=== PATIENT | female | born 1945 | race Caucasian/White ===

== ENCOUNTER 2019-01-22 01:35 | Outpatient (CLI) | payer MEDICARE, BC, SELFPAY ==
[2019-01-22 12:58] LABS: CREATININE 0.82 mg/dL (0.55-1.02)
[2019-01-22] MEDS: Omnipaque 350 MG/ML 100 ML BTL IJ (13:28)
[2019-01-22] MEDS: Normal Saline Flush 10 ML SYR IVP (13:29)
--- NOTE | 2019-01-22 13:30 | DI.CT_ITS ---
EXAM: CT CHEST W CLINICAL HISTORY: MASS OF CHEST WALL, R22.2, H/O HODGKINS LYMPHOMA. TECHNIQUE: Post IV contrast. COMPARISON: CHEST 2 VIEWS PA,LAT from 01/11/2010 FINDINGS: The heart size is normal. No pleural or pericardial effusions are seen. No axillary, hilar or medias tinal adenopathy is seen. The thyroid gland is unremarkable. Scoliosis and degenerative changes are seen in thoracic spine. The aorta shows calcification but is normal in diameter. There is some pul monary scarring adjacent to the spine in the anterior mediastinum which could be secondary to previou s radiation therapy. No pulmonary nodules or acute infiltrates are seen. No chest wall mass is iden tified. The breasts are unremarkable. The visualized portions of the upper abdomen are unremarkab le. IMPRESSION: No evidence of a chest wall mass or other acute abnormality.
== END 2019-01-22 01:55 ==
PROVIDERS: PCP Physician Assistant Medical; Visit Provider Physician Assistant Medical
DX: R22.2 Localized swelling, mass and lump, trunk (principal); Z85.71 Personal history of Hodgkin lymphoma
CPT/HCPCS: 71260; 82565; J3490

== ENCOUNTER → 2019-03-01 09:24 | Outpatient (BNVA) | payer MEDICARE, BC, SELFPAY | PROVIDERS: PCP Physician Assistant Medical; Referring Provider Physician Assistant Medical; Visit Provider Student in an Organized Health Care Education/Training Program | DX: M17.12 Unilateral primary osteoarthritis, left knee (principal); M17.11 Unilateral primary osteoarthritis, right knee; M23.203 Derangement of unspecified medial meniscus due to old tear or injury, right knee | CPT/HCPCS: 99213 ==

== ENCOUNTER 2019-04-24 01:53 | Outpatient (CLI) | payer MEDICARE, BC, SELFPAY ==
--- NOTE | 2019-04-24 14:11 | DI.US_ITS ---
APPROVED REPORT EXAM: Comprehensive 2D, Doppler, and color-flow Echocardiogram Patient Location: Out-Patient Finisher Merchant Products: Susana Joe RDCS (AE) Rhythm: NSR Indications: pre operative examiniation z01.818 Conclusion Left Ventricle : The left ventricle is normal size. Borderline concentric left ventricular hypertroph y. Left ventricular systolic function is normal. There is normal LV segmental wall motion. The left ventricular diastolic function is normal. LVEF is estimated to be 60-65%. Right Ventricle : The right ventricle is normal size. The right ventricular systolic function is norm al. Atria : Left atrium is normal in size. Right atrium is mildly dilated. Aortic Valve : Aortic valve is trileaflet. Aortic valve has calcified nodular thickening. Moderate ao rtic valve sclerosis. Mild to moderate aortic regurgitation. Moderate to severe aortic stenosis (mean gradient 31 mmHg, JOAN by VTI 1.02 cm???). 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 Mild to moderate mitral re gurgitation. No evidence of mitral valve stenosis. Tricuspid Valve : The tricuspid valve leaflets are thickened , but open well. Mild to moderate tricus pid regurgitation. Great Vessels : IVC is normal in size and collapses >50% with inspiration. Estimated RVSP is 30-35 m mHg. Compared to prior echocardiogram dated 11/18/2015: Patient's aortic valve stenosis has worsened and parveen n gradient has increased from 10 mmHg to 30 mmHg. Wall motion Left Ventricle The left ventricle is normal size. Left ventricular systolic function is normal. Borderline concentri c left ventricular hypertrophy. There is normal LV segmental wall motion. The left ventricular diasto lic function is normal. LVEF is estimated to be 60-65%. Right Ventricle The right ventricle is normal size. The right ventricular systolic function is normal. Atria Left atrium is normal in size. Right atrium is mildly dilated. Aortic Valve Aortic valve is trileaflet. Aortic valve has calcified nodular thickening. Moderate aortic valve scle rosis. Moderate to severe aortic stenosis (mean gradient 31 mmHg, JOAN by VTI 1.02 cm???). Mild to mod erate aortic regurgitation. 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 No evidence of mitral valve stenosis. Mil d to moderate mitral regurgitation. Tricuspid Valve The tricuspid valve leaflets are thickened , but open well. Mild to moderate tricuspid regurgitation. Pulmonic Valve Pulmonic valve is not well visualized. Great Vessels The aortic root is normal in size. The ascending aorta is normal in size. IVC is normal in size and c ollapses >50% with inspiration. Estimated RVSP is 30-35 mmHg. Pericardium No pericardial effusion. 2D Dimensions IVSd 1.05 cm F: 0.6-1.0 LV EDV A2C 66.20 mL PWd 1.15 cm F: 0.6 - 1.0 LV EDV A4C 46.70 mL LVDd 4.10 cm F: 3.8 - 5.2 LA Volume Index A2C 33.42 mL/m2 LVDs 2.85 cm F: 2.2 - 3.5 LA Volume Index A4C 33.68 mL/m2 Aortic Root 2.90 cm F: 2.7 - 3.3 LA Volume Index Biplane 34.81 mL/m2 RA Area A4C 20.01 cm2 LA Area A4C 19.50 cm2 LVOT 1.95 cm (M/F) 1.5-2.5 LA Area A2C 20.15 cm2 Ascending Aorta 3.09 cm F: 2.3 - 3.1 EF AP4 61.67 % LVEF (Teich) 58.54 % EF AP2 64.65 % LVEF (Briseno's) 60.63 % F: 54 - 74 EF BP 60.63 % LV Volume 44.99 mL F: 46 - 106 LV Volume Index 23.67 mL/m2 F: 29 - 61 FS 30.55 % LV Diastology E/A Ratio 1.4 MED E' 0.09 (>0.07 m/s) LV E/e MED 12.40 (<14) LAT E' 0.10 (>0.1 m/s) LV E/e LAT 11.50 (<14) Aortic Valve LVOT Area 3.06 cm2 LVOT Vmax 1.17 m/s LVOT Mean Aron. 0.92 m/s LVOT Peak Gr. 5.5 mmHg LVOT Mean Gr. 3.7 mmHg AoV Area/ BSA (Vmax) 0.51 cm2/m2 LVOT VTI 0.267 m AoV Vmax 3.73 (0.5-1.3 m/s) JOAN Mean Aron. Index 0.56 cm2/m2 AoV Mean Aron. 2.65 m/s AoV Peak Grad 55.6 mmHg AI PHT 334.67 msec AoV Mean Grad 31.3 (<5 mmHg) AoV VTI 0.846 (0.18-0.25 m) AV Regurg Decel. 1154.05 msec AoV Area VTI 1.02 (2.5-4.5 cm2) AoV Area/ BSA (VTI) 0.53 cm/m2 Mitral Valve MV E Max Aron. 1.11 (0.4-1.3 m/s) MV A Velocity 0.80 (0.4-1.3 m/s) E/A Ratio 1.30 Pulmonary Valve PV Peak Velocity 0.89 (0.5-1.5 m/s) RVOT Peak Gr. 1.71 mmHg RVOT Peak Aron. 0.65 m/s RVOT Mean Gr. 0.95 mmHg RVOT VTI 0.10 m Tricuspid Valve TR P. Velocity 2.74 m/s TV Regurg Vmax 2.74 m/s RAP Estimate 3.00 mmHg RVSP 32.95 mmHg TR P. Gradient 29.95 mmHg
== END 2019-04-24 02:13 ==
PROVIDERS: PCP Physician Assistant Medical; Visit Provider Physician Assistant Medical
DX: R01.1 Cardiac murmur, unspecified (principal); I35.2 Nonrheumatic aortic (valve) stenosis with insufficiency; I34.0 Nonrheumatic mitral (valve) insufficiency; Z85.71 Personal history of Hodgkin lymphoma; Z01.810 Encounter for preprocedural cardiovascular examination
CPT/HCPCS: 93306

== ENCOUNTER 2020-04-29 03:12 | Outpatient (CLI) | payer MEDICARE, BC, SELFPAY ==
--- NOTE | 2020-04-29 14:00 | DI.US_ITS ---
APPROVED REPORT EXAM: Comprehensive 2D, Doppler, and color-flow Echocardiogram Patient Location: Out-Patient City Constable: Gisella Reeves RDCS (AE) Indications: Aortic Stenosis Other Information Study Quality: Adequate Conclusion Normal left ventricular wall thickness and chamber size. Estimated ejection fraction is 60%. There are no segmental wall motion abnormalities Normal right ventricular size and systolic function Both atria are normal in size Aortic valve is sclerotic with mild to moderate stenosis. Mean gradient is 18 mmHg. Calculated aort ic valve area is 1.1 cm???. Mild aortic regurgitation Mild to moderate mitral regurgitation. Mild mitral annular calcification Mild tricuspid regurgitation with normal estimated right ventricular systolic pressure Wall motion Left Ventricle The left ventricle is normal size. The left ventricular systolic function is normal. The left ventric ular ejection fraction is within the normal range. There is normal left ventricular wall thickness. T here is normal LV segmental wall motion. There is no ventricular septal defect visualized. Left ventr icular thrombus is present. Left ventricular thrombus appears mobile. Left ventricular thrombus is pr esent. LVEF is 60%. Right Ventricle The right ventricle is normal size. The right ventricular systolic function is normal. The RVSP is 27 .9 mmHg. Atria The left atrium size is normal. The right atrium size is normal. The interatrial septum is intact wit h no evidence for an atrial septal defect. Aortic Valve Aortic valve is calcified. Aortic valve is trileaflet. Mild to moderate aortic stenosis. Peak aortic valve gradient is 32.8mmHg. Highest mean aortic valve gradient is 18.6mmHg. Calculated JOAN by the con tinuity equation is 1.1cm2. Mild aortic regurgitation. Mitral Valve Mild mitral annular calcification. No evidence of mitral valve stenosis. Mild to moderate mitral regu rgitation. Tricuspid Valve The tricuspid valve is normal in structure. There is no tricuspid valve stenosis. Mild tricuspid regu rgitation. Pulmonic Valve The pulmonary valve is normal in structure. There is no pulmonic valvular stenosis. There is no pulmo albert valvular regurgitation. Great Vessels The aortic root is normal in size. The ascending aorta is normal in size. Aortic arch is not well vis ualized. IVC is normal in size and collapses >50% with inspiration. Pericardium There is no pericardial effusion. 2D Dimensions IVSD d PLAX 1.00 cm F: 0.6-1.0 LV Vol A2C d MOD 90.9 mL LVPW d PLAX 1.02 cm F: 0.6 - 1.0 LV Vol A4C d MOD 88.9 mL LVID d PLAX 4.26 cm F: 3.8 - 5.2 LA vol/ BSA A2C s A-L 29.4 mL/m2 LVDs 3.00 cm F: 2.2 - 3.5 LA vol/ BSA A4C s A-L 26.8 mL/m2 Ao Root d 2.81 cm F: 2.7 - 3.3 LA Vol/ BSA Biplane s A-L 28.4 mL/m2 RA Area A4C 13.86 cm2 LA Area A4C s MOD 18.07 cm2 RA Vol/ BSA A4C s A-L 17.5 mL/m2 LA Area A2C s MOD 19.12 cm2 Ao Asc Diam d 3.16 cm F: 2.3 - 3.1 LV EF A4C MOD 64.3 % LV EF Teichholz 56.4 % LV EF A2C MOD 59.9 % LVEF (Briseno's) 61.38 % F: 54 - 74 LV EF Biplane MOD 61.4 % LV Volume 69.78 mL F: 46 - 106 SV 56.04 mL LV Volume Index 36.92 mL/m2 F: 29 - 61 SV Index 29.62 mL/m2 LV Vol Biplane MOD 91.3 mL FS 29.20 % M-Mode TAPSE 2.40 cm (M/F) >1.7 LV Diastology MV E' medial 0.084 (>0.07 m/s) E/A Ratio 1.2 LV E/e MED 13.15 (<14) MV E Vmax 1.11 (0.4-1.3 m/s) MV E' lateral 0.086 (>0.1 m/s) MV A Vmax 0.90 (0.4-1.3 m/s) LV E/e LAT 12.95 (<14) MV E/A Ratio 1.20 MV E/E' medial 13.17 MV E/E' lateral 12.98 Aortic Valve LVOT Area 3.03 cm2 AoV Area Vmax 1.10 cm2 LVOT Vmax 1.04 m/s AoV Area/ BSA (Vmax) 0.58 cm2/m2 LVOT Mean Aron. 0.68 m/s JOAN Mean Aron. 1.01 cm2 LVOT Peak Grad 4.3 mmHg JOAN Mean Aron. Index 0.53 cm2/m2 LVOT Mean Grad 2.2 mmHg AR DT 1420 msec LVOT VTI 0.211 m AR PHT 412 msec LVOT Diam s 1.95 cm AoV Vmax 2.86 m/s Velocity Ratio 0.36 AoV Mean Aron. 2.05 m/s AoV Peak Grad 32.8 mmHg LVOT SV 64.00 mL AoV Mean Grad 18.6 mmHg AoV VTI 0.628 m AoV Area VTI 1.02 cm2 AoV Area/ BSA (VTI) 0.54 cm/m2 Mitral Valve MV DT 198 (160-240 msec) MR Vmax 5.44 m/s MV PHT 57 msec MR VTI 1.808 m MV Area PHT 3.84 cm2 MR Peak Grad 118.3 mmHg MV VTI 0.348 m MR Mean Grad 92.3 mmHg MV VTI Annulus 0.357 m MR PISA Radius 0.54 cm MV Area VTI 1.89 (4.0-6.0 cm2) MR EROA 0.12 cm2 MR Aliasing Velocity 0.35 m/s MR PISA 1.84 cm2 Pulmonary Valve PV Vmax 1.39 (0.5-1.5 m/s) RVOT Peak Gr. 1.95 mmHg PV Peak Grad 7.7 mmHg RVOT Mean Gr. 1.10 mmHg PV Mean Grad 3.9 mmHg RVOT VTI 0.187 m PV VTI 0.272 m RVOT Vmax 0.70 m/s Tricuspid Valve TR Peak Grad 24.8 mmHg TR Vmax 2.49 m/s RA Pressure 3.00 mmHg RVSP (TR) 27.9 mmHg
== END 2020-04-29 03:32 ==
PROVIDERS: PCP Physician Assistant Medical; Visit Provider Physician Assistant Medical
DX: I08.3 Combined rheumatic disorders of mitral, aortic and tricuspid valves
CPT/HCPCS: 93306

== ENCOUNTER 2020-09-03 05:17 | Emergency (ER) | payer MEDICARE, BC, SELFPAY ==
[2020-09-03] VITALS (30 sets, daily range): BP systolic 112–131; BP diastolic 56–73; PULSE 76–89; RESP 13–26; TEMP 36.5–36.6; O2SAT 78–100
--- NOTE | 2020-09-03 05:30 | RT.EKG_ITS ---
APPROVED REPORT Exam: Resting ECG Reason for Exam: SOB Patient Location: E HR:77 bpm ECG Measurements Heart Rate 77 AXIS WA 163 P 59 QRSd 83 QRS 26 QT 387 T 32 QTc 439 Conclusion Sinus rhythm. Atrial premature complexes. ST elevation suggests possible acute pericarditis...ST >0.10mV, ant/lat/inf
--- NOTE | 2020-09-03 05:43 | ED.GENADUL_ITS ---
Discharge Plan Disposition Patient Disposition: HOME Condition: Stable Discharge Details Clinical Impression: Shortness of breath, Pericarditis Primary Care Provider: Norris Blair ED Provider: Raymond Anthony Home Meds and New Rx's Prescriptions: New colchicine 0.6 mg tablet 0.6 mg PO BID Qty: 60 RF: 0 omeprazole 20 mg capsule,delayed release(DR/EC) 20 mg PO DAILY Qty: 30 RF: 0 Continued ibuprofen 200 MG capsule 200 - 400 mg PO PRN PRNRF: 0 loratadine 10 MG tablet 10 mg PO DAILY RF: 0 Discharge Instructions Instructions: Acute Pericarditis (ED) Additional Instructions: In addition to the colchicine and omeprazole take 600mg ibuprofen very 6 hours until symptoms resolve follow up with your primary care provider as you may need longer treatment with colchicine if you feel more ill, have worsening symptoms or shortness of breath return to the emergency department Medical Decision Making <Manoj Morel MD - Last Filed: 09/03/20 06:52> 75-year-old female complains of difficulty breathing that began yesterday afternoon after exerting herself vigorously doing yard work. She also complains of achy back pain. States she feels as if she cannot take a deep breath and has some discomfort with doing so. Discomfort worse while lying down. She is known to have a calcified aortic valve by ultrasound from April 2020. She has also had a history of lymphoma. She arrives to the ER with normal vital signs, speaking in full sentences, with the after mentioned complaints as well as complaints of loose stool and a mild sore throat. She has had notes of COVID-19 vaccine. Differential diagnosis is broad. Her exam does reveal a loud systolic murmur consistent with her known aortic stenosis. IV access established, screening laboratories, EKG, chest x-ray obtained. EKG does reveal J-point elevation and may be consistent with pericarditis. Of note patient's CK is slightly elevated at 229, troponin is negative, C-reactive protein still elevated at 0.6. BNP 205. D-dimer 680. Chest x-ray: Hyperinflation with patchy opacity at the right lung base. Well age-adjusted D-dimer is negative, I will proceed with CT imaging. Case to be signed out to Dr. Anthony pending further diagnostics. Please see his subsequent note. <Raymond Anthony MD - Last Filed: 09/03/20 09:35> patient states she feels significantly better after toradol and initial troponin unremarkable and cta shows no acute findings, chronic unchanged infiltrate in right lung and she denies any infectious symptoms. On bedside u/s has normal appearing EF and also potentially small effusion. her symptoms are consistent with likely pericarditis, will obtain delta ecg and troponin patient remains stable and feels much better speaking in full sentences in no distress, repeat ecg and troponin unchanged. Will start on colchicine and ibuprofen and empiric ppi. Advised to follow up with her pcp and return precautions given Imaging Data Radiologic Study: Attestation: I personally reviewed and interpreted this imaging study as follows: Imaging: CT Scan Radiologist's impression: MPRESSION: 1. No evidence of acute pulmonary emboli.? No evidence of pulmonary infarction.No pleural effusions. 2. Chronic infiltrate in anterior segment of the right upper lobe and in the paraspinal region of the left upper lobe, both of these findings being unchanged from the CT scan of January 2019.? No new infiltrates evident 3. There is no intrathoracic adenopathy. Lab Data Lab results reviewed: Yes I reviewed the patient's lab results. ECG Data Attestation: I personally reviewed and interpreted this ECG (s) as follows: Prior ECG tracings: available for review Interpretation: sinus rhythm, rate of 81, pr152, mild anterior st elevation in anterior and inferior leads consistent with pericarditis, no st depressions HPI <Manoj Morel MD - Last Filed: 09/03/20 06:52> General Mode of arrival: ambulatory . Date/Time Provider Initiated Documentation: 09/03/20 05:32 . Limitations to Documentation: no limitations . Information obtained by: patient . History of Present Illness 75 year old F presents to the emergency department with the chief complaint of Short of breath, aching chest, described as moderate, Quality is described as dull and constant, and is localized to the chest. Patient reports no radiation. Patient started experiencing this hour(s) and it has been constant. No relieving factors improve symptom(s), Other factors that worsen symptoms (Seemed worse lying flat at home) . Patient notes chest pain, shortness of breath and other (Muscle ache, loose stool). Patient did receive the following treatments prior to arrival, none Related Data Home Medications Medication Instructions Recorded Confirmed ibuprofen 200 - 400 mg PO PRN PRN 06/06/14 09/03/20 loratadine 10 mg PO DAILY 06/06/14 09/03/20 colchicine 0.6 mg PO BID #60 tab 09/03/20 omeprazole 20 mg PO DAILY #30 cap 09/03/20 Previous Rx's Medication Instructions Recorded colchicine 0.6 mg PO BID #60 tab 09/03/20 omeprazole 20 mg PO DAILY #30 cap 09/03/20 Allergies Allergy/AdvReac Type Severity Reaction Status Date / Time environmental Allergy Mild Uncoded 03/01/19 09:55 General Stated Complaint: GenMedical QUIANA: 3 Review of Systems <Manoj Morel MD - Last Filed: 09/03/20 06:52> Narrative: History of calcified aortic valve, lost to follow-up due to COVID-19 pandemic. Questions mild swelling of her lower extremities. Feels body ache, chest and back ache. PFSH <Manoj Morel MD - Last Filed: 09/03/20 06:52> Medical History (Updated 09/03/20 @ 08:48 by Raymond Anthony MD) Cataract Hodgkin lymphoma Tinnitus Social History Smoking/Tobacco Use Status: Former Tobacco Use Smoking risk assessment performed?: Yes Alcohol Intake: former Drug use: Never Do you feel safe at home: Yes Do you feel safe in your relationship?: Yes Exam <Manoj Morel MD - Last Filed: 09/03/20 06:52> Narrative Exam Narrative: GEN: awake, alert, oriented 3. Pleasant, well groomed, interactive. HEAD: Normocephalic, atraumatic ENT: Mucous membranes moist, oropharynx unremarkable, External ear exam unremarkable EYES: PERRL, EOMI NECK: Full ROM, no DEE, no menigismus CHEST/RESP: Nontender, clear to auscultation bilateral, no wheeze/rhonchi/rales CARDIOVASCULAR: RRR, 4 out of 6 systolic ejection murmur best at left upper sternal border, no rub/annika. 2+ Rad pulse bilateral ABDOMEN: Soft, nontender, no mass. +Bowel sounds EXT: Full ROM, no edema, no rash Neuro: Grossly normal neurologic exam, conversant, interactive. Psych: Speech fluent, thoughts congruent, affect flat Course <Manoj Morel MD - Last Filed: 09/03/20 06:52> Vital Signs Vital signs: Vital Signs Temperature 36.6 C 09/03/20 05:22 Pulse 81 09/03/20 05:22 Respiratory Rate 20 09/03/20 05:22 Blood Pressure 126/68 09/03/20 05:22 Pulse Oximetry 97 09/03/20 05:22 Temperature 36.6 C 09/03/20 05:22 Temperature Source Temporal Artery Scan 09/03/20 05:22 Pulse 81 09/03/20 05:22 Respiratory Rate 20 09/03/20 05:29 Respiratory Effort Non-Labored 09/03/20 05:29 Respiratory Depth Normal 09/03/20 05:29 Respiratory Pattern Normal 09/03/20 05:29 Blood Pressure 126/68 09/03/20 05:22 Blood Pressure Position Sitting 09/03/20 05:22 Pulse Oximetry 97 09/03/20 05:22 Oxygen Delivery Method Room Air 09/03/20 05:22 Oxygen Flow Rate 0 09/03/20 05:22 Pain Level 0 09/03/20 05:22 Sign Out <Manoj Morel MD - Last Filed: 09/03/20 06:52> Sign Out Data: Sign Out Comment: Follow-up CT chest and repeat troponin Last updated by Manoj Morel MD at 09/03/20 06:55
[2020-09-03 06:01] LABS: Abs Immature Grans 0.02 10^3/uL (0.0-0.06); Absolute Basophil Count 0.04 10^3/uL (0.0-0.2); Absolute Eosinophil Count 0.07 10^3/uL (0.0-0.7); Absolute Lymphocyte Count 0.82 10^3/uL (1.2-3.4); Absolute Monocyte Count 0.82 10^3/uL (0.1-0.8); Absolute Neutrophil Count 8.49 10^3/uL (1.2-6.7); Basophils % 0.4; Eosinophils % 0.7; HCT 39.8 % (36.0-46.0); HGB 12.6 g/dL (11.2-15.7); Immature Grans % 0.2; MCH 28.8 pg (27.0-33.0); MCHC 31.7 % (32.0-36.0); MCV 91.1 fL (80-95); MPV 9.7 fL (8.0-11.0); Neutrophils % 82.7; Nucleated RBC 0 %; Platelet Count 234 10^3/uL (130-400); RBC 4.37 10^6/uL (3.93-5.22); RDW 12.8 % (11.7-14.6); WBC 10.26 10^3/uL (4.4-10.8)
[2020-09-03] MEDS: Normal Saline 1,000 ML 150 ML IV (06:08)
[2020-09-03 06:16] LABS: Creatine Kinase 229 U/L (26-192); PTT Activated 19.6 sec (21.0-27.5)
--- NOTE | 2020-09-03 06:19 | DI.RAD_ITS ---
Exam(s) XR CHEST 2V PA LATERAL EXAM: XR CHEST 2V PA LATERAL CLINICAL HISTORY: SOB. TECHNIQUE: 2D digital imaging was performed. COMPARISON: CT CT CHEST W from 01/22/2019 FINDINGS: Heart size is upper normal. The mediastinum is not widened. There is platelike atelectasis in the left lung base just above the left hemidiaphragm. No confluent infiltrates. No pleural effusions. No pulmonary edema. IMPRESSION: There is platelike atelectasis in the left lung base. No pleural effusions. DATA REPOSITORY: RADIATION DOSE DELIVERED:
[2020-09-03 06:23] LABS: ALT 25 U/L (14-59); AST 20 U/L (15-37); Albumin 3.9 g/dL (3.4-5.0); Alkaline Phosphatase 80 U/L (46-116); Anion Gap 10.6 mmol/L (3-11); BUN 34 mg/dL (7-18); Bilirubin, Total 0.6 mg/dL (0.2-1.0); CO2 26.4 mmol/L (21.0-32.0); CREATININE 1.1 mg/dL (0.55-1.02); Calcium 8.8 mg/dL (8.5-10.1); Chloride 104 mmol/L (98-107); Estimated GFR 48.29 (mL/min/1.73m2); Glucose 133 mg/dL (74-106); Magnesium 2.1 mg/dL (1.8-2.4); NT-proBNP 205 pg/mL (<300); Potassium 3.8 mmol/L (3.5-5.1); Sodium 141 mmol/L (136-145); Total Protein 7.8 g/dL (6.4-8.2); Troponin I < 0.05 ng/mL (<0.06)
[2020-09-03] MEDS: Ketorolac 15 MG/ML VIAL IVP (06:31)
[2020-09-03 06:37] LABS: D-Dimer 680 ng/mlFEU (<500)
--- NOTE | 2020-09-03 06:47 | DI.VRAD_ITS ---
PROCEDURE INFORMATION: Exam: XR Chest Exam date and time: 09/03/2020 5:45 AM Age: 75 years old Clinical indication: Shortness of breath TECHNIQUE: Imaging protocol: XR of the chest. Views: 2 views. COMPARISON: CT CHEST W 01/22/2019 1:29 PM FINDINGS: Lungs: Hyperinflation compatible with COPD. Patchy opacity at the right lung base likely atelectasis. Pleural spaces: Unremarkable. No pleural effusion. No pneumothorax. Heart/Mediastinum: Unremarkable. No cardiomegaly. Bones/joints: Unremarkable. IMPRESSION: Hyperinflation compatible with COPD. Dictated and Authenticated by: Derian To MD. Ordering:AMERICO Aranda MD
--- NOTE | 2020-09-03 07:36 | DI.CT_ITS ---
Exam(s) CT CHEST PE CTA EXAM: CT CHEST PE CTA CLINICAL HISTORY: SOB, positional CP. TECHNIQUE: Imaging Protocol: CT angiography of the chest was performed using pulmonary embolus maris col. Multi planar reconstructions were performed. CONTRAST MATERIAL: Intravenous: Omnipaque 350 Contrast volume: 70 cc COMPARISON: CT CT CHEST W from 01/22/2019 FINDINGS: CHEST: PULMONARY ARTERIES: There are no intraluminal filling defects to suggest acute pulmonary emboli. LUNGS: There is chronic-type infiltrate posteromedially in the left upper lobe adjacent to the dental instrument maker ior aortic arch, unchanged from 2019 and unchanged mild infiltrate also in the anterior segment of th e right upper lobe. There are no new infiltrates nor evidence of pulmonary infarction. No pleural e ffusions. There are no ominous pulmonary nodules. There are no significant focal findings in the tr achea and mainstem bronchi.. There are no pleural effusions. MEDIASTINUM: There is no hilar nor mediastinal adenopathy. Visualized thyroid unremarkable. CARDIAC: Heart size is upper normal. There is no pericardial effusion.Caliber of the thoracic aorta is within normal limits. There is no significant shift of the interventricular septum. PARTIALLY VISUALIZED UPPERMOST ABDOMEN: No obvious findings OSSEOUS: No significant osseous lesions.. IMPRESSION: 1. No evidence of acute pulmonary emboli. No evidence of pulmonary infarction.No pleural effusions. 2. Chronic infiltrate in anterior segment of the right upper lobe and in the paraspinal region of the left upper lobe, both of these findings being unchanged from the CT scan of January 2019. No new in filtrates evident 3. There is no intrathoracic adenopathy. RADIATION DOSE DELIVERED: 367.83mGy.cm Total DLP DATA REPOSITORY: All CT scans at this facility are submitted to the National Radiology Data Registry (NRDR) Dose Index Registry (DIR) with the [employer] (ACR). RADIATION OPTIMIZATION: All CT scans at this facility use at least one of these dose optimization te chniques: automated exposure control; mA and/or kV adjustment per patient size (includes targeted exa ms where dose is matched to clinical indication); or iterative reconstruction.
[2020-09-03] MEDS: Omnipaque 350 MG/ML 100 ML BTL 70 ML IJ (07:39)
[2020-09-03] MEDS: Normal Saline - Diluent 50 ML VIAL IV (07:40)
--- NOTE | 2020-09-03 08:15 | RT.EKG_ITS ---
APPROVED REPORT Exam: Resting ECG Reason for Exam: SOB, ST elevation on previous EKG Patient Location: E HR:81 bpm ECG Measurements Heart Rate 81 AXIS NM 152 P 59 QRSd 77 QRS 21 QT 371 T 17 QTc 431 Conclusion Sinus rhythm...normal P axis, V-rate 60- 99 Supraventricular bigeminy...bigeminy string>4 w/ SV complexes ST elevation suggests acute pericarditis...ST >0.10mV, ant/lat/inf
[2020-09-03 09:22] LABS: Troponin I < 0.05 ng/mL (<0.06)
--- NOTE | 2020-09-03 09:35 | NUR.NOTE ---
Nursing Note: Referral faxed to [facility] for follow up of pericarditis ANDREA. Veronica Cox
== END 2020-09-03 09:43 | disposition home or self-care (01) ==
PROVIDERS: Emergency Medicine; Emergency Provider Emergency Medicine; PCP Physician Assistant Medical
DX: R06.02 Shortness of breath (principal); I30.9 Acute pericarditis, unspecified
CPT/HCPCS: 71275; 80053; 82550; 93005; 96361; 96374; 99285; 71046; 83735; 83880; 84484; 85025; 85379; 85730; 86140; 93010; 99283; J1885; J3490

== ENCOUNTER 2020-09-08 16:05 | Outpatient (REF) | payer MEDICARE, BC, SELFPAY ==
[2020-09-09 12:32] LABS: Lyme Ab w Rflx to Lyme Confirm Negative (Negative)
[2020-09-10 15:28] LABS: COVID-19 RT-PCR UVMMC Result Negative (Negative)
[2020-09-10 16:37] LABS: Anaplasma phagocytophilum Negative (Negative); B. miyamotoi PCR Negative (Negative); Babesia divergens/MO-1 Negative (Negative); Babesia duncani Negative (Negative); Babesia microti Negative (Negative); Ehrlichia chaffeensis Negative (Negative); Ehrlichia ewingii/canis Negative (Negative); Ehrlichia muris eauclairensis Negative (Negative)
== END 2020-09-08 16:06 | disposition home or self-care (01) ==
LOC: NCHCN 16:05
PROVIDERS: PCP Physician Assistant Medical; Visit Provider Physician Assistant Medical
DX: R06.02 Shortness of breath (principal); I31.9 Disease of pericardium, unspecified; Z20.822 Contact with and (suspected) exposure to COVID-19
CPT/HCPCS: 87798; U0003; 86618

== ENCOUNTER 2020-09-15 02:08 | Outpatient (CLI) | payer MEDICARE, BC, SELFPAY ==
--- NOTE | 2020-09-15 15:11 | DI.US_ITS ---
APPROVED REPORT EXAM: Comprehensive 2D, Doppler, and color-flow Echocardiogram Patient Location: Out-Patient [facility] Supervisor: Gisella Reeves RDCS (AE) Indications: Aortic Stenosis Other Information Study Quality: Adequate Conclusion Left Ventricle : The left ventricle is normal size. The left ventricular systolic function is normal. The left ventricular ejection fraction is within the normal range. There is normal left ventricular wall thickness. There is normal LV segmental wall motion. The left ventricular diastolic function is normal. LVEF is 60%. Right Ventricle : The right ventricle is normal size. The right ventricular systolic function is norm al. The RVSP is 31.4mmHg. Aortic Valve : Aortic valve is calcified. Aortic valve is probably trileaflet. Mild to moderate aorti c stenosis. Peak aortic valve gradient is 36.2mmHg. Highest mean aortic valve gradient is 20.6mmHg. C alculated JOAN by the continuity equation is 1.19cm2. Mild to moderate aortic regurgitation. Mitral Valve : Mild mitral annular calcification. Moderate mitral regurgitation. No evidence of anselmo l valve stenosis. Great Vessels : The aortic root is normal in size. The ascending aorta is normal in size. IVC is norm al in size and collapses >50% with inspiration. Pericardium : There is no pericardial effusion. Compared to study from 04/29/20, there is no significant change. Wall motion Left Ventricle The left ventricle is normal size. The left ventricular systolic function is normal. The left ventric ular ejection fraction is within the normal range. There is normal left ventricular wall thickness. T here is normal LV segmental wall motion. The left ventricular diastolic function is normal. There is no ventricular septal defect visualized. LVEF is 60%. Right Ventricle The right ventricle is normal size. The right ventricular systolic function is normal. The RVSP is 31 .4mmHg. Atria The left atrium size is normal. The right atrium size is normal. The interatrial septum is intact wit h no evidence for an atrial septal defect. Aortic Valve Aortic valve is calcified. Aortic valve is probably trileaflet. Mild to moderate aortic stenosis. Pea k aortic valve gradient is 36.2mmHg. Highest mean aortic valve gradient is 20.6mmHg. Calculated JOAN b y the continuity equation is 1.19cm2. Mild to moderate aortic regurgitation. Mitral Valve Mild mitral annular calcification. No evidence of mitral valve stenosis. Moderate mitral regurgitatio n. Tricuspid Valve The tricuspid valve is normal in structure. There is no tricuspid valve stenosis. Mild tricuspid regu rgitation. Pulmonic Valve The pulmonary valve is normal in structure. There is no pulmonic valvular stenosis. Trace pulmonic re gurgitation. Great Vessels The aortic root is normal in size. The ascending aorta is normal in size. IVC is normal in size and c ollapses >50% with inspiration. Pericardium There is no pericardial effusion. 2D Dimensions IVSD d PLAX 0.97 cm F: 0.6-1.0 LV Vol A2C d MOD 92.6 mL LVPW d PLAX 0.98 cm F: 0.6 - 1.0 LV Vol A4C d MOD 89.8 mL LVID d PLAX 4.25 cm F: 3.8 - 5.2 LA vol/ BSA A2C s A-L 33.1 mL/m2 LVDs 2.90 cm F: 2.2 - 3.5 LA vol/ BSA A4C s A-L 23.5 mL/m2 Ao Root d 2.80 cm F: 2.7 - 3.3 LA Vol/ BSA Biplane s A-L 28.5 mL/m2 RA Area A4C 14.21 cm2 LA Area A4C s MOD 16.45 cm2 RA Vol/ BSA A4C s A-L 16.6 mL/m2 LA Area A2C s MOD 19.92 cm2 Ao Asc Diam d 3.14 cm F: 2.3 - 3.1 LV EF A4C MOD 60.3 % LV EF Teichholz 59.9 % LV EF A2C MOD 60.1 % LVEF (Briseno's) 59.25 % F: 54 - 74 LV EF Biplane MOD 59.2 % LV Volume 71.37 mL F: 46 - 106 SV 55.24 mL LV Volume Index 37.96 mL/m2 F: 29 - 61 SV Index 29.33 mL/m2 LV Vol Biplane MOD 93.2 mL FS 31.60 % M-Mode TAPSE 2.56 cm (M/F) >1.7 LV Diastology MV E' medial 0.130 (>0.07 m/s) E/A Ratio 1.3 LV E/e MED 8.65 (<14) MV E Vmax 1.13 (0.4-1.3 m/s) MV E' lateral 0.112 (>0.1 m/s) MV A Vmax 0.90 (0.4-1.3 m/s) LV E/e LAT 10.00 (<14) MV E/A Ratio 1.21 MV E/E' medial 8.65 MV E/E' lateral 10.03 Aortic Valve LVOT Area 3.15 cm2 AoV Area Vmax 1.19 cm2 LVOT Vmax 1.15 m/s AoV Area/ BSA (Vmax) 0.64 cm2/m2 LVOT Mean Aron. 0.79 m/s JOAN Mean Aron. 1.15 cm2 LVOT Peak Grad 5.2 mmHg JOAN Mean Aron. Index 0.61 cm2/m2 LVOT Mean Grad 2.6 mmHg AR DT 1147 msec LVOT VTI 0.267 m AR PHT 333 msec LVOT Diam s 2.00 cm AoV Vmax 3.01 m/s Velocity Ratio 0.38 AoV Mean Aron. 2.15 m/s AoV Peak Grad 36.2 mmHg LVOT SV 83.87 mL AoV Mean Grad 20.6 mmHg AoV VTI 0.682 m AoV Area VTI 1.23 cm2 AoV Area/ BSA (VTI) 0.65 cm/m2 Mitral Valve MV DT 193 (160-240 msec) MR Vmax 5.68 m/s MV PHT 56 msec MR VTI 1.882 m MV Area PHT 3.92 cm2 MR Peak Grad 129.1 mmHg MV VTI 0.398 m MR Mean Grad 97.8 mmHg MV VTI Annulus 0.400 m MV Area VTI 2.12 (4.0-6.0 cm2) Pulmonary Valve PV Vmax 0.97 (0.5-1.5 m/s) RVOT Peak Gr. 2.51 mmHg PV Peak Grad 3.7 mmHg RVOT Mean Gr. 1.25 mmHg PV Mean Grad 2.5 mmHg RVOT VTI 0.166 m PV VTI 0.201 m RVOT Vmax 0.79 m/s Tricuspid Valve TR Peak Grad 28.3 mmHg TR Vmax 2.66 m/s RA Pressure 3.00 mmHg RVSP (TR) 31.4 mmHg
== END 2020-09-15 02:28 ==
PROVIDERS: PCP Physician Assistant Medical; Visit Provider Physician Assistant Medical
DX: R06.02 Shortness of breath (principal); I31.9 Disease of pericardium, unspecified; I08.0 Rheumatic disorders of both mitral and aortic valves
CPT/HCPCS: 93306

== ENCOUNTER 2020-09-17 12:23 | Outpatient (CLI) | payer MEDICARE, BC, SELFPAY ==
--- NOTE | 2020-09-17 12:15 | RT.EKG_ITS ---
APPROVED REPORT Exam: Resting ECG Reason for Exam: chest pain Patient Location: O HR:70 bpm ECG Measurements Heart Rate 70 AXIS IA 162 P 54 QRSd 69 QRS 9 QT 376 T 16 QTc 406 Conclusion Sinus rhythm...normal P axis, V-rate 50- 99 Left atrial enlargement...P, P'>60mS, <-0.15mV V1 Low voltage, precordial leads...precordial leads <1.0mV
== END 2020-09-17 12:24 | disposition home or self-care (01) ==
LOC: DI.CARD 12:26
PROVIDERS: PCP Physician Assistant Medical; Visit Provider Internal Medicine Cardiovascular Disease
DX: R07.9 Chest pain, unspecified (principal)
CPT/HCPCS: 93010

== ENCOUNTER → 2020-09-17 13:36 | Outpatient (BNVA) | payer MEDICARE, BC, SELFPAY | PROVIDERS: PCP Physician Assistant Medical; Referring Provider Physician Assistant Medical; Visit Provider Internal Medicine Cardiovascular Disease | DX: I31.8 Other specified diseases of pericardium (principal); I35.0 Nonrheumatic aortic (valve) stenosis | CPT/HCPCS: 93005; 99214 ==

== ENCOUNTER 2020-10-25 13:50 | Emergency (ER) | payer MEDICARE, BC, SELFPAY ==
[2020-10-25] VITALS (42 sets, daily range): BP systolic 106–149; BP diastolic 61–93; PULSE 72–83; RESP 7–28; TEMP 36.7; O2SAT 95–100
--- NOTE | 2020-10-25 13:45 | RT.EKG_ITS ---
APPROVED REPORT Exam: Resting ECG Reason for Exam: chest pain Patient Location: E HR:76 bpm ECG Measurements Heart Rate 76 AXIS AL 161 P 61 QRSd 70 QRS 21 QT 364 T 6 QTc 409 Conclusion Sinus rhythm...normal P axis, V-rate 60- 99 Probable left atrial enlargement...P >50mS, <-0.10mV V1
--- NOTE | 2020-10-25 14:00 | DI.RAD_ITS ---
Exam(s) XR CHEST 2V PA LATERAL EXAM: XR CHEST 2V PA LATERAL CLINICAL HISTORY: pain TECHNIQUE: 2D digital imaging was performed. COMPARISON: No exams were available for comparison FINDINGS: MEDIASTINUM: Normal. HEART: Normal. PULMONARY VASCULATURE: Normal. LUNGS: Clear. PLEURAL SPACE: No pleural effusion or pneumothorax. BONE:Degenerative changes are seen in the spine. OTHER FINDINGS:Normal. IMPRESSION: No acute pulmonary findings. DATA REPOSITORY: RADIATION DOSE DELIVERED:
--- NOTE | 2020-10-25 14:10 | ED.GENADUL_ITS ---
Discharge Plan Disposition Patient Disposition: STILL A PATIENT Condition: Stable Discharge Details Clinical Impression: Chest pain Primary Care Provider: Norris Blair ED Provider: Nery Escobar Home Meds and New Rx's Prescriptions: No Action colchicine 0.6 mg tablet 0.6 mg PO BID Qty: 120 RF: 0 ibuprofen 200 MG capsule 200 - 400 mg PO PRN PRNRF: 0 loratadine 10 mg tablet 10 mg PO DAILY PRNRF: 0 omeprazole 20 mg capsule,delayed release(DR/EC) 20 mg PO DAILY Qty: 30 RF: 0 Discharge Instructions Instructions: Chest Pain (ED) Additional Instructions: Please follow-up with your human relations professor on Monday Reinitiate your ibuprofen, 400 to 600 mg every 6-8 hours with food for the next 5 days You may also take your omeprazole with this Should you have new or worsening complaints, please return to the emergency room for reevaluation Discharge Data Discharge Date/Time-TO BE ENTERED AT DEPARTURE: 10/25/20 18:15 Medical Decision Making <VÍCTOR Rahman - Last Filed: 10/26/20 08:10> 75-year-old female, former smoker, medical history of aortic stenosis, recent diagnosis of pericarditis, presents to the ER today reporting chest pain that began last night, feels very similar to her pericarditis. Clinically she appears well, nontoxic. Has diffuse reproducible chest wall discomfort. Will provide a full dose of aspirin and initiate cardiac work-up including D-dimer. Patient denies any acute pain or swelling in her legs. If initial laboratory values are unremarkable then will give IV Toradol, continue to observe and obtain a repeat troponin at 3 hours. Patient and family comfortable with this plan. Differential includes but not exclusive to ACS, PE, pericarditis, costochondritis, pneumonia, given presentation, extremely low suspicion for dissection. Initial laboratory values are unremarkable for obvious emergent process. D- dimer 569, negative when age-adjusted. Initial troponin less than 0.05. We will not obtain CTA of the chest. Chest x-ray negative per radiology Discussed initial work-up, benign thus far with patient and family. Will give 30 IV Toradol. Patient and family agreeable to awaiting repeat troponin at 3- hour hesham. Medical Records Medical records reviewed: Yes I reviewed the patient's medical records. Imaging Data Radiologic Study: Attestation: I personally reviewed and interpreted this imaging study as follows: Imaging: X-Ray Radiologist's impression: No exams were available for comparison] [] FINDINGS MEDIASTINUM: [Normal.] [] HEART: [Normal.] [] PULMONARY VASCULATURE: [Normal.] [] LUNGS: [Clear.] [] PLEURAL SPACE: [No pleural effusion or pneumothorax.] [] BONE:[Degenerative changes are seen in the spine.] [] OTHER FINDINGS:[Normal.] [] IMPRESSION [No acute pulmonary findings.] Lab Data Lab results reviewed: Yes I reviewed the patient's lab results. Labs: Laboratory Tests Range/Units 10/25/20 10/25/20 10/25/20 14:00 14:00 14:00 WBC (4.4-10.8) 10^3/uL 9.30 RBC (3.93-5.22) 10^6/uL 4.57 Hgb (11.2-15.7) g/dL 13.4 Hct (36.0-46.0) % 41.7 MCV (80-95) fL 91.2 MCH (27.0-33.0) pg 29.3 MCHC (32.0-36.0) % 32.1 RDW (11.7-14.6) % 12.6 Plt Count (130-400) 10^3/uL 242 MPV (8.0-11.0) fL 10.2 Immature Gran % 0.2 Neutrophils % 80.5 Lymphocytes % 9.8 Monocytes % 7.6 Eosinophils % 1.6 Basophils % 0.3 Nucleated RBC % % 0 Absolute Neutrophils (1.2-6.7) 10^3/uL 7.48 H Absolute Lymphocytes (1.2-3.4) 10^3/uL 0.91 L Absolute Monocytes (0.1-0.8) 10^3/uL 0.71 Absolute Eosinophils (0.0-0.7) 10^3/uL 0.15 Absolute Basophils (0.0-0.2) 10^3/uL 0.03 PT (9.3-11.0) sec 10.4 INR (0.9-1.1) 1.0 APTT (21.0-27.5) sec 22.6 D-Dimer (<500) ng/mlFEU 569 H Sodium (136-145) mmol/L 143 Potassium (3.5-5.1) mmol/L 3.6 Chloride (98-107) mmol/L 106 Carbon Dioxide (21.0-32.0) mmol/L 27.1 Anion Gap (3-11) mmol/L 9.9 BUN (7-18) mg/dL 28 H Creatinine (0.55-1.02) mg/dL 0.9 Estimated GFR/1.73 m2 (mL/min/1.73m2) >= 60.00 Glucose (74-106) mg/dL 122 H Calcium (8.5-10.1) mg/dL 9.0 Magnesium (1.8-2.4) mg/dL 2.0 Total Bilirubin (0.2-1.0) mg/dL 0.5 AST (15-37) U/L 12 L ALT (14-59) U/L 21 Alkaline Phosphatase (46-116) U/L 89 Troponin I (<0.06) ng/mL < 0.05 Total Protein (6.4-8.2) g/dL 7.7 Albumin (3.4-5.0) g/dL 3.9 ECG Data Attestation: I personally reviewed and interpreted this ECG (s) as follows: Interpretation: Please see official report by Dr. Michel. Sinus rhythm, ventricular rate of 76. No STEMI <VÍCTOR Campos - Last Filed: 10/25/20 20:36> Care was transferred to [facility] pending repeat EKG and troponin by Juan Jose Barton PA-C, patient reports significant symptomatic improvement after Toradol administration Her symptoms she reports are consistent with her prior episode of pericarditis Her EKG does not show acute pathology, her sed rate is negative She requests discharge home, she feels symptomatically improved He has a negative repeat EKG, negative troponin Patient was encouraged to follow-up with her human relations professor on Monday and return immediately should she have change in pain, persistent pain, or worsening symptoms She will reinitiate her ibuprofen temporarily until she sees cardiology next week HPI <VÍCTOR Rahman - Last Filed: 10/26/20 08:10> General Mode of arrival: ambulatory . Date/Time Provider Initiated Documentation: 10/25/20 13:51 . Limitations to Documentation: no limitations . Information obtained by: patient and family . HPI Narrative: This is a 75-year-old female, former smoker, past medical history that includes pericarditis, diagnosed in the ER on 09-03-20, aortic stenosis, presenting to the ER reporting diffuse chest pain that began yesterday at rest around 8-9:00, progressed, now 8 out of 10 pain. Pain is across her entire anterior chest, bilateral shoulders and both sides of her neck. She states that movement or deep breathing makes her pain worse. She states nothing really makes it better. Patient is still taking her colchicine, is only taking 200 mg of ibuprofen at bedtime, and she discontinued taking her omeprazole. She denies recent illness or trauma. Patient denies fever, cough, back pain, abdominal pain, nausea, vomiting, numbness, tingling, weakness, skin rash, change in bowel or bladder function. Patient states this feels very much like her previous episode of pericarditis. Patient does not take a baby aspirin daily. Related Data Home Medications Medication Instructions Recorded Confirmed ibuprofen 200 - 400 mg PO PRN PRN 06/06/14 10/25/20 omeprazole 20 mg PO DAILY #30 cap 09/03/20 10/25/20 colchicine 0.6 mg tablet 0.6 mg PO BID #120 tab 09/17/20 10/25/20 loratadine 10 mg tablet 10 mg PO DAILY PRN 09/17/20 10/25/20 Previous Rx's Medication Instructions Recorded omeprazole 20 mg PO DAILY #30 cap 09/03/20 colchicine 0.6 mg tablet 0.6 mg PO BID #120 tab 09/17/20 Allergies Allergy/AdvReac Type Severity Reaction Status Date / Time environmental Allergy Mild Uncoded 10/25/20 14:00 General Stated Complaint: Chest Pain QUIANA: 2 Review of Systems <VÍCTOR Rahman - Last Filed: 10/26/20 08:10> Constitutional Constitutional: Denies fatigue, Denies fever(s), Denies headache(s) and Denies weakness Eyes Eyes: Denies change in vision ENT Ears, Nose, Mouth, and Throat: Denies headache(s) and Reports neck pain Cardiovascular Cardiovascular: Reports chest pain Respiratory Respiratory: Denies cough Gastrointestinal Gastrointestinal: Denies abdominal pain, Denies nausea and Denies vomiting Musculoskeletal Musculoskeletal: Denies back pain and Reports neck pain Integumentary/Breasts Skin/Breast: Denies rash Neurologic Neurologic: Denies headache(s) and Denies weakness Endocrine Endocrine: Denies fatigue PFSH <VÍCTOR Rahman - Last Filed: 10/26/20 08:10> Medical History Cataract Hodgkin lymphoma Tinnitus Social History Smoking/Tobacco Use Status: Former Tobacco Use Smoking risk assessment performed?: Yes Alcohol Intake: former Drug use: Never What type of physical activity do you participate in: additional Details: mows lawn, yard work Do you feel safe at home: Yes Do you feel safe in your relationship?: Yes Exam <VÍCTOR Rahman - Last Filed: 10/26/20 08:10> Const General: cooperative, healthy appearing, comfortable and no acute distress Orientation: alert and awake HENMT Head: normal to inspection, normocephalic and atraumatic Face and sinus: normal facial exam Mouth: moist mucous membranes Eyes General: appearance normal, both eyes and all related structures Conjunctivae: conjunctivae normal Neck Neck: normal visual inspection, full ROM, no meningeal signs, trachea midline, supple and nontender Chest Chest: normal inspection of the chest, no crepitus, tenderness (Diffuse anterior) and No rash Resp Effort & Inspection: normal respiratory effort and able to speak in complete sentences Auscultation: clear to auscultation bilaterally Cardio Rate: regular rate Rhythm: regular rhythm Heart Sounds: murmur GI Palpation: soft and nontender Back/Spine/Pelvis Back: No back tenderness Skin General skin exam: no rashes or lesions noted Neuro General: patient alert, patient awake, moves all extremities and no focal motor deficits Cognition: normal cognition Speech: speech normal Gait: normal gait Sensory Exam: no sensory deficits noted Extrem General: normal to inspection, full ROM and capillary refill normal Psych Appearance: grossly normal Mental Status: mental status grossly normal Course <VÍCTOR Rahman - Last Filed: 10/26/20 08:10> Vital Signs Vital signs: Vital Signs Temperature 36.7 C 10/25/20 13:55 Pulse 78 10/25/20 13:55 Respiratory Rate 18 10/25/20 13:55 Blood Pressure 145/70 H 10/25/20 13:55 Pulse Oximetry 97 10/25/20 13:55 Temperature 36.7 C 10/25/20 13:55 Temperature Source Skin 10/25/20 13:55 Pulse 78 10/25/20 13:55 Respiratory Rate 18 10/25/20 13:55 Respiratory Effort Non-Labored 10/25/20 14:05 Respiratory Depth Normal 10/25/20 14:05 Respiratory Pattern Normal 10/25/20 14:05 Blood Pressure 145/70 H 10/25/20 13:55 Pulse Oximetry 97 10/25/20 13:55 Oxygen Delivery Method Room Air 10/25/20 13:55 Oxygen Flow Rate 0 10/25/20 13:55 Pain Level 8 10/25/20 13:55 Sign Out <VÍCTOR Rahman - Last Filed: 10/26/20 08:10> Sign Out Data: Sign Out Comment: Chest pain that began yesterday, feels like her previous pericarditis. Initial work-up unremarkable. Just given 30 IV Toradol. Awaiting repeat troponin at 3 hours. She is followed by our cardiology team Last updated by Juan Jose Barton PA at 10/25/20 15:59
[2020-10-25] MEDS: Aspirin 81 MG CHEW 324 MG CH (14:13)
[2020-10-25 14:33] LABS: Abs Immature Grans 0.02 10^3/uL (0.0-0.06); Absolute Basophil Count 0.03 10^3/uL (0.0-0.2); Absolute Eosinophil Count 0.15 10^3/uL (0.0-0.7); Absolute Lymphocyte Count 0.91 10^3/uL (1.2-3.4); Absolute Monocyte Count 0.71 10^3/uL (0.1-0.8); Absolute Neutrophil Count 7.48 10^3/uL (1.2-6.7); Basophils % 0.3; Eosinophils % 1.6; HCT 41.7 % (36.0-46.0); HGB 13.4 g/dL (11.2-15.7); Immature Grans % 0.2; Lymphocytes % 9.8; MCH 29.3 pg (27.0-33.0); MCHC 32.1 % (32.0-36.0); MCV 91.2 fL (80-95); MPV 10.2 fL (8.0-11.0); Monocytes % 7.6; Neutrophils % 80.5; Nucleated RBC 0 %; Platelet Count 242 10^3/uL (130-400); RBC 4.57 10^6/uL (3.93-5.22); RDW 12.6 % (11.7-14.6); RDW-SD 42.1 fL
[2020-10-25 14:47] LABS: PTT Activated 22.6 sec (21.0-27.5); Prothrombin Time 10.4 sec (9.3-11.0)
[2020-10-25 14:55] LABS: ALT 21 U/L (14-59); AST 12 U/L (15-37); Albumin 3.9 g/dL (3.4-5.0); Alkaline Phosphatase 89 U/L (46-116); Anion Gap 9.9 mmol/L (3-11); BUN 28 mg/dL (7-18); Bilirubin, Total 0.5 mg/dL (0.2-1.0); CO2 27.1 mmol/L (21.0-32.0); CREATININE 0.9 mg/dL (0.55-1.02); Chloride 106 mmol/L (98-107); Glucose 122 mg/dL (74-106); Potassium 3.6 mmol/L (3.5-5.1); Sodium 143 mmol/L (136-145); Total Protein 7.7 g/dL (6.4-8.2)
[2020-10-25 15:00] LABS: Troponin I < 0.05 ng/mL (<0.06)
[2020-10-25 15:33] LABS: D-Dimer 569 ng/mlFEU (<500)
[2020-10-25] MEDS: Ketorolac 30 MG/ML VIAL IVP (15:45)
--- NOTE | 2020-10-25 16:15 | RT.EKG_ITS ---
APPROVED REPORT Exam: Resting ECG Reason for Exam: chest pain Patient Location: E HR:76 bpm ECG Measurements Heart Rate 76 AXIS IN 165 P 63 QRSd 68 QRS 17 QT 362 T 17 QTc 407 Conclusion Sinus rhythm...normal P axis, V-rate 60- 99 Atrial premature complex...SV complex w/ short R-R interval ST elevation, consider inferior injury...ST >0.08mV, II III aVF
[2020-10-25 17:15] LABS: ESR 18 mm/hr (0-30)
[2020-10-25 17:40] LABS: Troponin I < 0.05 ng/mL (<0.06)
== END 2020-10-25 18:15 | disposition still patient (30) ==
PROVIDERS: Physician Assistant; Emergency Provider Physician Assistant; PCP Physician Assistant Medical
DX: R07.9 Chest pain, unspecified (principal)
CPT/HCPCS: 36415; 80053; 85652; 93005; 96374; 99284; 71046; 83735; 84484; 85025; 85379; 85610; 85730; 93010; J1885

== ENCOUNTER → 2020-11-23 14:00 | Outpatient (BNVA) | payer MEDICARE, BC, SELFPAY | PROVIDERS: PCP Physician Assistant Medical; Referring Provider Physician Assistant Medical; Visit Provider Internal Medicine Cardiovascular Disease | DX: R07.89 Other chest pain (principal); I31.9 Disease of pericardium, unspecified; I35.0 Nonrheumatic aortic (valve) stenosis | CPT/HCPCS: 99214; 99213 ==

== ENCOUNTER → 2021-02-23 10:32 | Outpatient (BNVA) | payer MEDICARE, BC, SELFPAY | PROVIDERS: PCP Physician Assistant Medical; Referring Provider Physician Assistant Medical; Visit Provider Internal Medicine Cardiovascular Disease | DX: I35.0 Nonrheumatic aortic (valve) stenosis (principal) | CPT/HCPCS: 99214; 99213 ==

== ENCOUNTER 2021-08-16 01:07 | Outpatient (CLI) | payer MEDICARE, BC, SELFPAY ==
--- NOTE | 2021-08-16 14:00 | DI.US_ITS ---
APPROVED REPORT EXAM: Comprehensive 2D, Doppler, and color-flow Echocardiogram Patient Location: Out-Patient [employer] Consultant: Gisella Reeves RDCS (AE) Other Information Study Quality: Adequate Conclusion Normal left ventricular wall thickness and chamber size. Estimated ejection fraction is 60%. Wall m otion is normal Normal right ventricular size and systolic function Both atria are mildly dilated The aortic valve is sclerotic and trileaflet. There is moderate aortic stenosis. Peak gradient is 4 4, mean is 25. Calculated aortic valve area 0.94 centimeters squared. There is mild aortic regurgit ation Mild mitral annular calcification with thickened mitral leaflets. There is moderate mitral regurgita tion Normal tricuspid valve with mild regurgitation. Estimated right ventricular systolic pressure is 28 mmHg Wall motion Left Ventricle The left ventricle is normal size. The left ventricular systolic function is normal. The left ventric ular ejection fraction is within the normal range. There is normal left ventricular wall thickness. T here is normal LV segmental wall motion. There is no ventricular septal defect visualized. LVEF is 60 %. Right Ventricle The right ventricle is normal size. The right ventricular systolic function is normal. The RVSP is 28 .0mmHg. Atria Left atrium is mildly dilated. Right atrium is mildly dilated. The interatrial septum is intact with no evidence for an atrial septal defect. Aortic Valve Aortic valve is calcified. Aortic valve is trileaflet. Moderate aortic stenosis. Peak aortic valve gr adient is 44 mmHg Peak aortic valve gradient is 44.2mmHg. Highest mean aortic valve gradient is 25.0m mHg. Calculated JOAN by the continuity equation is .94cm2. Mild aortic regurgitation. Mitral Valve Mild mitral annular calcification. No evidence of mitral valve stenosis. Moderate mitral regurgitatio n. Tricuspid Valve The tricuspid valve is normal in structure. There is no tricuspid valve stenosis. Mild tricuspid regu rgitation. Pulmonic Valve The pulmonary valve is normal in structure. There is no pulmonic valvular stenosis. Trace pulmonic re gurgitation. Great Vessels The aortic root is normal in size. The ascending aorta is mildly dilated. Aortic arch is not well vis ualized. IVC is normal in size and collapses >50% with inspiration. Pericardium There is no pericardial effusion. 2D Dimensions IVSD d PLAX 0.98 cm F: 0.6-1.0 LV Vol A2C d MOD 82.4 mL LVPW d PLAX 0.97 cm F: 0.6 - 1.0 LV Vol A4C d MOD 89.9 mL LVID d PLAX 4.36 cm F: 3.8 - 5.2 LA vol/ BSA A2C s A-L 38.0 mL/m2 LVDs 2.90 cm F: 2.2 - 3.5 LA vol/ BSA A4C s A-L 34.7 mL/m2 Ao Root d 2.84 cm F: 2.7 - 3.3 LA Vol/ BSA Biplane s A-L 36.5 mL/m2 RA Area A4C 15.96 cm2 LA Area A4C s MOD 20.51 cm2 RA Vol/ BSA A4C s A-L 22.1 mL/m2 LA Area A2C s MOD 21.32 cm2 Ao Asc Diam d 3.29 cm F: 2.3 - 3.1 LV EF A4C MOD 58.5 % LV EF Teichholz 62.4 % LV EF A2C MOD 60.0 % LVEF (Briseno's) 60.49 % F: 54 - 74 LV EF Biplane MOD 60.5 % LV Volume 68.84 mL F: 46 - 106 SV 54.00 mL LV Volume Index 37.41 mL/m2 F: 29 - 61 SV Index 29.28 mL/m2 LV Vol Biplane MOD 89.3 mL FS 33.40 % M-Mode TAPSE 2.71 cm (M/F) >1.7 LV Diastology MV E' medial 0.112 (>0.07 m/s) E/A Ratio 1.2 LV E/e MED 10.90 (<14) MV E Vmax 1.23 (0.4-1.3 m/s) MV E' lateral 0.078 (>0.1 m/s) MV A Vmax 1.05 (0.4-1.3 m/s) LV E/e LAT 15.65 (<14) MV E/A Ratio 1.13 MV E/E' medial 10.90 MV E/E' lateral 15.67 Aortic Valve LVOT Area 2.86 cm2 AoV Area Vmax 0.94 cm2 LVOT Vmax 1.10 m/s AoV Area/ BSA (Vmax) 0.51 cm2/m2 LVOT Mean Aron. 0.79 m/s JOAN Mean Aron. 0.95 cm2 LVOT Peak Grad 4.8 mmHg JOAN Mean Aron. Index 0.51 cm2/m2 LVOT Mean Grad 2.8 mmHg AR DT 1323 msec LVOT VTI 0.249 m AR PHT 384 msec LVOT Diam s 1.90 cm AoV Vmax 3.32 m/s Velocity Ratio 0.33 AoV Mean Aron. 2.38 m/s AoV Peak Grad 44.2 mmHg LVOT SV 71.03 mL AoV Mean Grad 25.0 mmHg AoV VTI 0.711 m AoV Area VTI 1.00 cm2 AoV Area/ BSA (VTI) 0.54 cm/m2 Mitral Valve MV DT 169 (160-240 msec) MR Vmax 5.79 m/s MV PHT 49 msec MR VTI 1.876 m MV Area PHT 4.50 cm2 MR Peak Grad 134.3 mmHg MV VTI 0.406 m MR Mean Grad 99.5 mmHg MV VTI Annulus 0.455 m MV Area VTI 1.99 (4.0-6.0 cm2) Pulmonary Valve PV Vmax 1.02 (0.5-1.5 m/s) RVOT Peak Gr. 2.58 mmHg PV Peak Grad 4.1 mmHg RVOT Mean Gr. 1.30 mmHg PV Mean Grad 2.7 mmHg RVOT VTI 0.175 m PV VTI 0.223 m RVOT Vmax 0.80 m/s Tricuspid Valve TR Peak Grad 24.9 mmHg TR Vmax 2.50 m/s RA Pressure 3.00 mmHg RVSP (TR) 28.0 mmHg
== END 2021-08-16 01:27 ==
PROVIDERS: PCP Physician Assistant Medical; Visit Provider Internal Medicine Cardiovascular Disease
DX: I35.0 Nonrheumatic aortic (valve) stenosis (principal); R06.02 Shortness of breath
CPT/HCPCS: 93306

== ENCOUNTER → 2021-08-19 03:17 | Outpatient (CLI) | payer MEDICARE, BC, SELFPAY ==
--- NOTE | 2021-08-19 08:33 | DI.RAD_ITS ---
Exam(s) XR CLAVICLE RT EXAM: XR CLAVICLE RT CLINICAL HISTORY: CLAVICULAR ENLARGEMENT M89.38 TECHNIQUE: COMPARISON: No exams were available for comparison FINDINGS: Two views were obtained. There are hypertrophic degenerative changes at the acromioclavicular joint. No other bony or soft tissue abnormality seen involving the clavicle region. If there is a high clinical suspicion of a palpable mass, additional evaluation with CT or MRI may be considered. IMPRESSION: RADIATION DOSE DELIVERED: Total DLP
== END ==
PROVIDERS: PCP Physician Assistant Medical; Visit Provider Physician Assistant Medical
DX: M89.38 Hypertrophy of bone, other site (principal); M25.811 Other specified joint disorders, right shoulder
CPT/HCPCS: 73000

== ENCOUNTER → 2021-08-31 10:45 | Outpatient (BNVA) | payer MEDICARE, BC, SELFPAY | PROVIDERS: PCP Physician Assistant Medical; Visit Provider Internal Medicine Cardiovascular Disease | DX: R07.9 Chest pain, unspecified (principal); R06.02 Shortness of breath; I35.0 Nonrheumatic aortic (valve) stenosis | CPT/HCPCS: 99214; 99213 ==

== ENCOUNTER → 2021-09-08 04:00 | Outpatient (CLI) | payer MEDICARE, BC, SELFPAY ==
--- NOTE | 2021-09-08 13:45 | DI.MRI_ITS ---
Exam(s) MR CHEST WO/W EXAM: MR CHEST WO/W CLINICAL HISTORY: RT SC JT IRREGULARITY ON XR 08/19/21, R93.89, CLAVICULAR ENLARGEMENT, M89.38 TECHNIQUE: Multiplanar multisequence MRI of the Chest was performed. CONTRAST MATERIAL: IV Contrast: 16 ML of Dotarem contrast administered. COMPARISON: CR XR CLAVICLE RT from 08/19/2021 FINDINGS: Bones: There is marrow edema seen in the medial aspect of the right clavicle and the adjacent manubri um. No evidence of a fracture. Mild hypertrophic changes are seen at the medial clavicle. There is a small amount of fluid within the joint space. There is no associated soft tissue mass. There is mild hypertrophy of the cysts adjacent soft tissues. Following contrast administration, there is enh ancement in the surrounding soft tissues particularly anteriorly and superiorly. No enhancing fluid collection is seen. There is no enhancement seen within the joint. There is no enhancement of the b one marrow following contrast administration. IMPRESSION: Findings associated with the right sternoclavicular joint as described above. Primary diagnostic con cern is for arthritis including an inflammatory arthritis. Infection cannot be entirely excluded. N eoplasm is considered less likely. DATA REPOSITORY:
[2021-09-08 14:13] LABS: CREATININE 0.9 mg/dL (0.55-1.02)
[2021-09-08] MEDS: Normal Saline Flush 10 ML SYR IVP (14:33)
[2021-09-08] MEDS: Gadoterate meglumine 20 ML VIAL 16 ML IVP (14:34)
== END ==
PROVIDERS: PCP Physician Assistant Medical; Visit Provider Physician Assistant Medical
DX: R93.89 Abnormal findings on diagnostic imaging of other specified body structures (principal); M89.311 Hypertrophy of bone, right shoulder
CPT/HCPCS: 71552; 82565

== ENCOUNTER 2022-07-27 01:41 | Outpatient (CLI) | payer MEDICARE, BC, SELFPAY ==
--- NOTE | 2022-07-27 14:47 | DI.US_ITS ---
APPROVED REPORT EXAM: Comprehensive 2D, Doppler, and color-flow Echocardiogram Patient Location: Out-Patient [facility] Programmer: Eyad Tripp RDMS, RVT Indications: aortic stenosis Other Information Study Quality: Adequate Conclusion Normal left ventricular wall thickness and chamber size. Estimated ejection fraction is 60 to 65%. Wall motion is normal Normal right ventricular size and systolic function Left atrium is mildly dilated. Right atrial size is normal Aortic valve is calcified and probably trileaflet. There is moderate aortic stenosis. Peak gradient is 41, mean 27 mmHg. Calculated aortic valve area is 1.2 cm??. There is mild aortic regurgitation Mild mitral annular calcification. Mild to moderate mitral regurgitation Normal tricuspid valve with mild regurgitation Wall motion Left Ventricle The left ventricle is normal size. The left ventricular systolic function is normal. The left ventric ular ejection fraction is within the normal range. There is normal left ventricular wall thickness. T here is normal LV segmental wall motion. There is no ventricular septal defect visualized. LVEF is 60 -65%. Right Ventricle The right ventricle is normal size. The right ventricular systolic function is normal. Unable to asse ss PA pressure. Atria Left atrium is mildly dilated. The right atrium size is normal. The interatrial septum is intact with no evidence for an atrial septal defect. Aortic Valve Aortic valve is calcified. Aortic valve is probably trileaflet. Moderate aortic stenosis. Peak aortic valve gradient is 41.2 mmHg. Highest mean aortic valve gradient is 26.9 mmHg. Calculated JOAN by the continuity equation is 1.2 cm2. Mild aortic regurgitation. Mitral Valve Mild mitral annular calcification. No evidence of mitral valve stenosis. Mild to moderate mitral regu rgitation. Tricuspid Valve The tricuspid valve is normal in structure. There is no tricuspid valve stenosis. Mild tricuspid regu rgitation. Pulmonic Valve The pulmonary valve is normal in structure. There is no pulmonic valvular stenosis. Trace pulmonic re gurgitation. Great Vessels The aortic root is normal in size. Ascending aorta is normal in caliber. Aortic arch is normal in kathia iber. IVC is normal in size and collapses >50% with inspiration. Pericardium There is no pericardial effusion. 2D Dimensions IVSD d PLAX 0.79 cm F: 0.6-1.0 LV Vol A2C d MOD 70.6 mL LVPW d PLAX 0.78 cm F: 0.6 - 1.0 LV Vol A4C d MOD 96.5 mL LVID d PLAX 4.23 cm F: 3.8 - 5.2 LA vol/ BSA A4C s A-L 35.3 mL/m2 LVDs 3.10 cm F: 2.2 - 3.5 LA Area A4C s MOD 20.38 cm2 Ao Root d 2.79 cm F: 2.7 - 3.3 LV EF A4C MOD 66.1 % Ao Asc Diam d 2.96 cm F: 2.3 - 3.1 LV EF A2C MOD 61.4 % LV EF Teichholz 51.1 % LV EF Biplane MOD 63.1 % LVEF (Briseno's) 63.10 % F: 54 - 74 SV 52.86 mL LV Volume 64.56 mL F: 46 - 106 SV Index 28.61 mL/m2 LV Volume Index 34.89 mL/m2 F: 29 - 61 LV Vol Biplane MOD 83.8 mL FS 25.90 % M-Mode TAPSE 2.17 cm (M/F) >1.7 LV Diastology MV E' medial 0.116 (>0.07 m/s) E/A Ratio 0.9 LV E/e MED 10.50 (<14) MV E Vmax 1.22 (0.4-1.3 m/s) MV E' lateral 0.093 (>0.1 m/s) MV A Vmax 1.30 (0.4-1.3 m/s) LV E/e LAT 13.15 (<14) MV E/A Ratio 0.93 MV E/E' medial 10.53 MV E/E' lateral 13.16 Aortic Valve LVOT Area 3.22 cm2 AoV Area Vmax 1.19 cm2 LVOT Vmax 1.19 m/s AoV Area/ BSA (Vmax) 0.65 cm2/m2 LVOT Mean Aron. 0.91 m/s JOAN Mean Aron. 1.17 cm2 LVOT Peak Grad 5.7 mmHg JOAN Mean Aron. Index 0.63 cm2/m2 LVOT Mean Grad 3.6 mmHg AR DT 1660 msec LVOT VTI 0.306 m AR PHT 481 msec LVOT Diam s 2.00 cm AoV Vmax 3.24 m/s Velocity Ratio 0.37 AoV Mean Aron. 2.51 m/s AoV Peak Grad 41.8 mmHg LVOT SV 98.45 mL AoV Mean Grad 27.0 mmHg AoV VTI 0.773 m AoV Area VTI 1.29 cm2 AoV Area/ BSA (VTI) 0.70 cm/m2 Mitral Valve MV DT 246 (160-240 msec) MV PHT 71 msec MV Area PHT 3.09 cm2 MV VTI 0.434 m MV Area VTI 2.27 (4.0-6.0 cm2) Pulmonary Valve PV Vmax 2.00 (0.5-1.5 m/s) RVOT Peak Gr. 1.48 mmHg PV Peak Grad 16.1 mmHg RVOT Mean Gr. 0.95 mmHg PV Mean Grad 9.3 mmHg RVOT VTI 0.154 m PV VTI 0.406 m RVOT Vmax 0.61 m/s Tricuspid Valve TR Peak Grad 9.6 mmHg RA Pressure 3.00 mmHg
== END 2022-07-27 02:01 ==
PROVIDERS: PCP Physician Assistant Medical; Visit Provider Internal Medicine Cardiovascular Disease
DX: I35.0 Nonrheumatic aortic (valve) stenosis (principal)
CPT/HCPCS: 93306

== ENCOUNTER → 2022-08-30 10:13 | Outpatient (BNVA) | payer MEDICARE, BC, SELFPAY | PROVIDERS: PCP Physician Assistant Medical; Visit Provider Internal Medicine Cardiovascular Disease | DX: I87.2 Venous insufficiency (chronic) (peripheral) (principal); I35.0 Nonrheumatic aortic (valve) stenosis | CPT/HCPCS: 99214 ==

== ENCOUNTER 2023-01-04 11:46 | Outpatient (REF) | payer MEDICARE, BC, SELFPAY ==
[2023-01-04 18:15] LABS: ESR 18 mm/hr (0-30)
[2023-01-04 18:16] LABS: Abs Immature Grans 0.02 10^3/uL (0.0-0.06); Absolute Basophil Count 0.03 10^3/uL (0.0-0.2); Absolute Eosinophil Count 0.14 10^3/uL (0.0-0.7); Absolute Lymphocyte Count 0.94 10^3/uL (1.2-3.4); Absolute Monocyte Count 0.49 10^3/uL (0.1-0.8); Absolute Neutrophil Count 2.75 10^3/uL (1.2-6.7); Basophils % 0.7; Eosinophils % 3.2; HCT 40.8 % (36.0-46.0); HGB 13.1 g/dL (11.2-15.7); Immature Grans % 0.5; Lymphocytes % 21.5; MCH 29.3 pg (27.0-33.0); MCHC 32.1 % (32.0-36.0); MCV 91 fL (80-95); MPV 10.4 fL (8.0-11.0); Monocytes % 11.2; Neutrophils % 62.9; Platelet Count 247 10^3/uL (130-400); RBC 4.47 10^6/uL (3.93-5.22); RDW 12.2 % (11.7-14.6); RDW-SD 40.9 fL; WBC 4.37 10^3/uL (4.4-10.8)
[2023-01-04 18:44] LABS: ALT 17 U/L (14-59); AST 15 U/L (15-37); Albumin 3.9 g/dL (3.4-5.0); Alkaline Phosphatase 79 U/L (46-116); Anion Gap 7.9 mmol/L (3-11); BUN 34 mg/dL (7-18); Bilirubin, Total 0.5 mg/dL (0.2-1.0); C-Reactive Protein 0.17 mg/dL (0.0-0.3); CO2 27.1 mmol/L (21.0-32.0); Calcium 9.5 mg/dL (8.5-10.1); Chloride 105 mmol/L (98-107); Estimated GFR 57.66 (mL/min/1.73m2); Glucose 75 mg/dL (74-106); Potassium 4.2 mmol/L (3.5-5.1); Sodium 140 mmol/L (136-145); TSH 2.57 uIU/mL (0.36-3.74); Total Protein 7.5 g/dL (6.4-8.2)
[2023-01-05 18:51] LABS: Rheumatoid Factor 15.2 IU/mL (<12.0)
[2023-01-06 08:54] LABS: Cyclic Citrullinated Peptide <2.5 U/mL (<5.0)
[2023-01-09 16:09] LABS: ANA Interpretation Positive (Negative); ANA Titer Pattern 1:160 Homogeneous
== END 2023-01-04 11:47 | disposition home or self-care (01) ==
LOC: NCHCN 11:46
PROVIDERS: PCP Physician Assistant Medical; Visit Provider Nurse Practitioner Family
DX: M25.551 Pain in right hip (principal)
CPT/HCPCS: 80053; 85652; 86200; 84443; 84550; 85025; 86038; 86140; 86431

== ENCOUNTER → 2023-01-12 09:41 | Outpatient (CLI) | payer MEDICARE, BC, SELFPAY ==
--- NOTE | 2023-01-12 10:03 | DI.RAD_ITS ---
Exam(s) XR ARTHRITIS SERIES EXAM: XR ARTHRITIS SERIES CLINICAL HISTORY: HAND ARTHRITIS,M12.849. TECHNIQUE: 2D digital imaging was performed. COMPARISON: No exams were available for comparison FINDINGS: PA and [place] views of both hands. No evidence of fractures. There are advanced degenerative changes in the DIP joints, most prominent in the 2nd and 3rd fingers. Milder degenerative changes in the DIP joints of the other fingers. The re is also significant PIP joint involvement, most prominent in the sec, 3rd, and 4th PIP joints of t he right hand. There is relative sparing of the 5th finger. With respect of the metacarpophalangeal joints, there are no erosions evident. Degenerative change n oted at the MCP joint of the 3rd right finger. Less so at the other MCP joints. First carpometacarpal joints bilaterally appear relatively unremarkable. In the right wrist there is significant narrowing of the radiocarpal joint and slight widening of the scapholunate distance. No significant ulnar variance on either side. IMPRESSION: As above. DATA REPOSITORY: RADIATION DOSE DELIVERED:
== END ==
PROVIDERS: PCP Physician Assistant Medical; Visit Provider Nurse Practitioner Family
DX: M19.041 Primary osteoarthritis, right hand (principal)
CPT/HCPCS: 73120

== ENCOUNTER 2023-02-24 11:24 | Outpatient (REF) | payer MEDICARE, BC, SELFPAY ==
--- NOTE | 2023-02-24 10:55 | SKI_PTH ---
PATIENT: Shazia Camacho LOC: [facility] U#:[id number] AGE/SX: 77/F ROOM: RE02/24/[address]: VÍCTOR Lynn : 1945 BED: DIS: 02/24/2023 SPEC #: [id number] RECD: 02/24/23 13:46 STATUS: CORNELL REHannah #: [id number] HARRIET: 02/24/23 10:[address]: Manjinder Watts DEPT: Surgical Specimen RECD BY: Nery Rg ENTERED: 02/24/23 13:48 SP TYPE: MARGARETTE COLEMAN DR: Norris Blair Tissues: 1 - SKIN BIOPSY(SHAVE/PUNCH) Procedures: SKIN LEVEL 4 Comments: [id number]
== END 2023-02-24 11:25 | disposition home or self-care (01) ==
LOC: LBN 11:24
PROVIDERS: PCP Physician Assistant Medical; Visit Provider Physician Assistant
DX: D49.2 Neoplasm of unspecified behavior of bone, soft tissue, and skin (principal); L98.9 Disorder of the skin and subcutaneous tissue, unspecified
CPT/HCPCS: 88305

== ENCOUNTER → 2023-08-17 04:20 | Outpatient (CLI) | payer MEDICARE, BC, SELFPAY ==
--- NOTE | 2023-08-17 12:30 | DI.US_ITS ---
APPROVED REPORT EXAM: Comprehensive 2D, Doppler, and color-flow Echocardiogram Patient Location: Out-Patient Primary Teaching Assistant: Eyad Tripp RDCS (AE) Indications: Follow up aortic stenosis Conclusion Borderline concentric left ventricular hypertrophy. Ejection fraction is 60 to 65%. Wall motion is normal Normal right ventricular size and function Both atria are mildly enlarged Aortic valve is calcified. There is severe aortic stenosis. Peak gradient is 70 mmHg, mean is 39. There is trace aortic regurgitation Mitral annular calcification. Mild to moderate mitral regurgitation Moderate tricuspid regurgitation Estimated RVSP is 39 mmHg Wall motion Left Ventricle The left ventricle is normal size. The left ventricular systolic function is normal. The left ventric ular ejection fraction is within the normal range. Borderline concentric left ventricular hypertrophy . There is normal LV segmental wall motion. There is no ventricular septal defect visualized. LVEF is 60-65%. Right Ventricle The right ventricle is normal size. The right ventricular systolic function is normal. Atria Left atrium is mildly dilated. Right atrium is mildly dilated. The interatrial septum is intact with no evidence for an atrial septal defect. Aortic Valve Aortic valve is calcified. Number of aortic valve leaflets could not be assessed. Moderate to severe aortic stenosis. Peak aortic valve gradient is 70.42 mmHg. Highest mean aortic valve gradient is 38.7 6 mmHg. Calculated JOAN by the continuity equation is 0.4 cm2. Trace aortic regurgitation. Mitral Valve mitral annular calcification. No evidence of mitral valve stenosis. Mild to moderate mitral regurgit ation. Tricuspid Valve The tricuspid valve is normal in structure. There is no tricuspid valve stenosis. Moderate tricuspid regurgitation. The RVSP is 38.8mmHg. Pulmonic Valve The pulmonary valve is normal in structure. There is no pulmonic valvular stenosis. Trace pulmonic re gurgitation. Great Vessels The aortic root is normal in size. Ascending aorta is normal in caliber. Aortic arch is not well visu alized. IVC is normal in size and collapses >50% with inspiration. Pericardium There is no pericardial effusion. 2D Dimensions IVSD d PLAX 0.97 cm F: 0.6-1.0 Ao Root d 2.67 cm F: 2.7 - 3.3 LVPW d PLAX 1.00 cm F: 0.6 - 1.0 Ao Asc Diam d 3.19 cm F: 2.3 - 3.1 LVID d PLAX 4.19 cm F: 3.8 - 5.2 LVDs 2.71 cm F: 2.2 - 3.5 LV EF Teichholz 65.1 % FS 35.29 % LV EDV (Teich) 78.0 mL LV ESV (Teich) 27.3 mL Stroke Vol Index (Teich) 28.35 M-Mode TAPSE 2.74 cm (M/F) >1.7 Auto EF LV EDV A4C 94.8 mL LV EDV A2C 93.0 mL LV EDV BP 95.8 mL LV ESV A4C 37.9 mL LV ESV A2C 34.4 mL LV ESV BP 35.9 mL LVEF(%) A4C 60.1 % LVEF(%) A2C 63.1 % LVEF(%) BP 62.5 % LV SV A4C 57.0 ml LV SV A2C 58.7 ml LV SV BP 59.9 ml LV CO A4C 4.6 L/min LV CO A2C 4.7 L/min LV CO BP 4.7 L/min HR A4C 81.60 BPM HR A2C 80.36 BPM LV EDV Index (BP) LA Volume LA Length A4C 3.9 cm LA Length A2C 5.2 cm LA Area A4C s 11.33 cm2 LA Area A2C s 16.68 cm2 LA Vol A4C A-L 28.02 mL LA Vol A2C A-L 45.62 mL LA Vol Biplane A-L 41.3 mL LA Vol/BSA A4C A-L LA Vol/BSA A2C A-L LA Vol/BSA BP A-L 23.1 mL/m2 LA Vol A4C MOD 27.6 mL LA Vol A2C MOD 44.4 mL LA Vol BP MOD 40.1 mL RA Volume RA Area A4C RA ESV A4C (A-L) 30.1mL RA Vol/BSA A4C A-L RA Length A4C RA ESV A4C (MOD) 29.4mL LV Diastology MV E' medial 0.068 (>0.07 m/s) MV E Vmax 1.32 (0.4-1.3 m/s) MV E/E' MED 19.40 (<14) MV A Vmax 1.15 (0.4-1.3 m/s) MV E' lateral 0.079 (>0.1 m/s) E/A Ratio 1.1 MV E/E' LAT 16.75 (<14) MV E' Average 0.073 m/s MV E/E'(average) 17.97 Aortic Valve AoV Vmax 4.20 m/s LVOT Vmax 0.85 m/s AoV Peak Grad 65.8 mmHg LVOT Peak Grad 2.9 mmHg AoV Area (Vmax) 0.39 cm2 LVOT VTI 0.219 m AoV VTI 1.003 m LVOT Mean Grad 1.6 mmHg AoV Mean Aron. 2.88 m/s LVOT SV 42.30 mL AoV Mean Grad 38.8 mmHg LVOT Diam s 1.55 cm AoV Area (VTI) 0.42 cm2 AV Regurg Peak Gr. 61.15 mmHg Velocity Ratio 0.20 AR Decel [place] 1.9m/sec2 AR DT 2021 msec AR PHT 586 msec AR Vmax 3.89 m/s Mitral Valve MV DT 141 (160-240 msec) MR Vmax 6.61 m/s MV Vmax TIPS 1.32 m/s MR VTI 2.282 m MV Mean Grad 3.3 (<2mmHg) MR Peak Grad 174.9 mmHg MV VTI 0.460 m MR Mean Grad 122.4 mmHg MR PISA Radius 0.74 cm MR Aliasing Velocity 0.36 m/s Pulmonary Valve PV Vmax 1.81 (0.5-1.5 m/s) RVOT Vmax 0.77 m/s PV Peak Grad 13.1 mmHg RVOT Peak Gr. 2.4 mmHg PV Mean Aron 1.32 m/s RVOT VTI 0.136 m PV Mean Grad 7.7 mmHg RVOT Mean Gr. 1.1 mmHg Tricuspid Valve RA Pressure 3.00 mmHg TR Vmax 2.99 m/s TR Peak Grad 35.8 mmHg RVSP (TR) 38.8 mmHg
== END ==
PROVIDERS: PCP Physician Assistant Medical; Visit Provider Internal Medicine Cardiovascular Disease
DX: I35.0 Nonrheumatic aortic (valve) stenosis (principal); I51.7 Cardiomegaly
CPT/HCPCS: 93306

== ENCOUNTER 2023-08-29 07:37 | Outpatient (CLI) | payer MEDICARE, BC, SELFPAY ==
--- NOTE | 2023-08-29 07:30 | RT.EKG_ITS ---
APPROVED REPORT Exam: Resting ECG Reason for Exam: chest pain Patient Location: O HR:64 bpm ECG Measurements Heart Rate [address] 158 P 82 QRSd 70 QRS 62 QT 385 T 54 QTc 398 Conclusion Sinus rhythm...normal P axis, V-rate 50- 99 Right atrial abnormality .
== END 2023-08-29 07:38 | disposition home or self-care (01) ==
PROVIDERS: PCP Physician Assistant Medical; Visit Provider Internal Medicine Cardiovascular Disease
DX: R07.9 Chest pain, unspecified
CPT/HCPCS: 93010

== ENCOUNTER → 2023-08-29 10:18 | Outpatient (BNVA) | payer MEDICARE, BC, SELFPAY | PROVIDERS: PCP Physician Assistant Medical; Visit Provider Internal Medicine Cardiovascular Disease | DX: R94.31 Abnormal electrocardiogram [ECG] [EKG] (principal); I35.0 Nonrheumatic aortic (valve) stenosis | CPT/HCPCS: 93005; 99214 ==

== ENCOUNTER 2023-09-05 13:08 | Outpatient (REF) | payer MEDICARE, BC, SELFPAY ==
[2023-09-05 15:33] LABS: Abs Immature Grans 0.01 10^3/uL (0.0-0.06); Absolute Basophil Count 0.03 10^3/uL (0.0-0.2); Absolute Eosinophil Count 0.12 10^3/uL (0.0-0.7); Absolute Lymphocyte Count 1.06 10^3/uL (1.2-3.4); Absolute Monocyte Count 0.51 10^3/uL (0.1-0.8); Absolute Neutrophil Count 2.88 10^3/uL (1.2-6.7); Basophils % 0.7 %; Eosinophils % 2.6 %; HCT 39.3 % (36.0-46.0); HGB 12.7 g/dL (11.2-15.7); Immature Grans % 0.2 %; MCHC 32.3 % (32.0-36.0); MCV 93 fL (80-95); MPV 10.3 fL (8.0-11.0); Monocytes % 11.1 %; Neutrophils % 62.4 %; Platelet Count 226 10^3/uL (130-400); RBC 4.24 10^6/uL (3.93-5.22); RDW 12.5 % (11.7-14.6); RDW-SD 42.5 fL; WBC 4.61 10^3/uL (4.4-10.8)
[2023-09-05 15:54] LABS: ALT 22 U/L (14-59); AST 16 U/L (15-37); Albumin 3.9 g/dL (3.4-5.0); Alkaline Phosphatase 80 U/L (46-116); Anion Gap 7.6 mmol/L (3-11); BUN 30 mg/dL (7-18); Bilirubin, Total 0.5 mg/dL (0.2-1.0); CO2 27.4 mmol/L (21.0-32.0); CREATININE 0.9 mg/dL (0.55-1.02); Chloride 107 mmol/L (98-107); Estimated GFR 65.03 (mL/min/1.73m2); Glucose 84 mg/dL (74-106); NT-proBNP 373 pg/mL (<300); Potassium 4.3 mmol/L (3.5-5.1); Sodium 142 mmol/L (136-145); Total Protein 7.2 g/dL (6.4-8.2)
[2023-09-05 16:08] LABS: Calcium 9.3 mg/dL (8.5-10.1)
== END 2023-09-05 13:09 | disposition home or self-care (01) ==
LOC: NCHCN 13:08
PROVIDERS: PCP Physician Assistant Medical; Visit Provider Physician Assistant Medical
DX: I35.0 Nonrheumatic aortic (valve) stenosis (principal)
CPT/HCPCS: 80053; 83880; 85025

== ENCOUNTER 2024-02-28 01:22 | Outpatient (CLI) | payer MEDICARE, BC, SELFPAY ==
--- NOTE | 2024-02-28 12:30 | DI.US_ITS ---
APPROVED REPORT EXAM: Comprehensive 2D, Doppler, and color-flow Echocardiogram Patient Location: Out-Patient Capper Machine Operator: Gisella Reeves RDCS (AE) Indications: S/P TAVR Other Information Study Quality: Adequate Conclusion Normal left ventricular wall thickness and chamber size. Ejection fraction is 60 to 65%. Wall motio n is normal Normal right ventricular size and function Both atria are normal in size Patient is status post transcatheter aortic valve replacement. Mean gradient is 9 mmHg. There is mi ld paravalvular regurgitation Mitral annular calcification. Moderate mitral regurgitation Mild tricuspid regurgitation. Estimated right ventricular systolic pressure is 33 mmHg Wall motion Left Ventricle The left ventricle is normal size. The left ventricular systolic function is normal. The left ventric ular ejection fraction is within the normal range. There is normal left ventricular wall thickness. T here is normal LV segmental wall motion. There is no ventricular septal defect visualized. LVEF is 60 -65%. Right Ventricle The right ventricle is normal size. The right ventricular systolic function is normal. Atria The left atrium size is normal. The right atrium size is normal. The interatrial septum is intact wit h no evidence for an atrial septal defect. Aortic Valve TAVR aortic valve Mean gradient is 9 mmHg Mild paravalvular regurgitatioln. Mitral Valve Mitral annular calcification No evidence of mitral valve stenosis. moderate mitral regurgitation. Tricuspid Valve The tricuspid valve is normal in structure. There is no tricuspid valve stenosis. Mild tricuspid regu rgitation. The RVSP is 32.9_ mmHg. Pulmonic Valve The pulmonary valve is normal in structure. There is no pulmonic valvular stenosis. Mild pulmonic re gurgitation. Great Vessels The aortic root is normal in size. The ascending aorta is normal in size. Aortic arch is not well vis ualized. IVC is normal in size and collapses >50% with inspiration. Pericardium There is no pericardial effusion. 2D Dimensions IVSD d PLAX 1.00 cm F: 0.6-1.0 Ao Root d 2.12 cm F: 2.7 - 3.3 LVPW d PLAX 1.02 cm F: 0.6 - 1.0 Ao Asc Diam d 3.14 cm F: 2.3 - 3.1 LVID d PLAX 4.26 cm F: 3.8 - 5.2 LVDs 2.80 cm F: 2.2 - 3.5 LV EF Teichholz 63.7 % FS 34.35 % LV EDV (Teich) 81.4 mL LV ESV (Teich) 29.5 mL M-Mode TAPSE 1.92 cm (M/F) >1.7 Auto EF LV EDV A4C 72.2 mL LV EDV A2C 89.2 mL LV EDV BP 80.3 mL LV ESV A4C 28.7 mL LV ESV A2C 35.8 mL LV ESV BP 32.9 mL LVEF(%) A4C 60.2 % LVEF(%) A2C 59.9 % LVEF(%) BP 59.0 % LV SV A4C 43.5 ml LV SV A2C 53.4 ml LV SV BP 47.3 ml LV CO A4C 2.6 L/min LV CO A2C 3.2 L/min LV CO BP 2.9 L/min HR A4C 60.61 BPM HR A2C 60.61 BPM LV EDV Index (BP) LA Volume LA Length A4C 5.1 cm LA Length A2C 4.5 cm LA Area A4C s 19.54 cm2 LA Area A2C s 16.16 cm2 LA Vol A4C A-L 63.03 mL LA Vol A2C A-L 49.32 mL LA Vol Biplane A-L 59.6 mL LA Vol/BSA A4C A-L LA Vol/BSA A2C A-L LA Vol/BSA BP A-L 33.3 mL/m2 LA Vol A4C MOD 58.3 mL LA Vol A2C MOD 47.4 mL LA Vol BP MOD 56.1 mL RA Volume RA Area A4C 15.7 cm2 RA ESV A4C (A-L) 36.5mL RA Vol/BSA A4C A-L RA Length A4C 5.7 cm RA ESV A4C (MOD) 33.5mL LV Diastology MV E' medial 0.072 (>0.07 m/s) MV E Vmax 1.31 (0.4-1.3 m/s) MV E/E' MED 18.21 (<14) MV A Vmax 1.20 (0.4-1.3 m/s) MV E' lateral 0.082 (>0.1 m/s) E/A Ratio 1.1 MV E/E' LAT 16.03 (<14) MV E' Average 0.077 m/s MV E/E'(average) 17.05 Aortic Valve AoV Vmax 2.18 m/s LVOT Vmax 1.08 m/s AoV Peak Grad 19.1 mmHg LVOT Peak Grad 4.6 mmHg AoV Area (Vmax) 1.09 cm2 LVOT VTI 0.236 m AoV VTI 0.500 m LVOT Mean Grad 2.2 mmHg AoV Mean Aron. 1.40 m/s LVOT SV 52.38 mL AoV Mean Grad 9.1 mmHg LVOT Diam s 1.65 cm AoV Area (VTI) 1.05 cm2 AV Regurg Peak Gr. 19.07 mmHg Velocity Ratio 0.50 Mitral Valve MV DT 194 (160-240 msec) MR Vmax 6.36 m/s MV Vmax TIPS 1.39 m/s MR VTI 2.334 m MV Mean Grad 2.9 (<2mmHg) MR Peak Grad 161.7 mmHg MV VTI 0.428 m MR Mean Grad 121.5 mmHg Pulmonary Valve PV Vmax 0.88 (0.5-1.5 m/s) RVOT Vmax 0.63 m/s PV Peak Grad 3.1 mmHg RVOT Peak Gr. 1.6 mmHg PV Mean Aron 0.67 m/s RVOT VTI 0.159 m PV Mean Grad 2.0 mmHg RVOT Mean Gr. 1.0 mmHg Tricuspid Valve RA Pressure 3.00 mmHg TR Vmax 2.73 m/s TV S' 0.15 m/s TR Peak Grad 29.9 mmHg RVSP (TR) 32.9 mmHg
== END 2024-02-28 01:42 ==
LOC: DI 01:22
PROVIDERS: PCP Physician Assistant Medical; Visit Provider Internal Medicine Interventional Cardiology
DX: Z95.2 Presence of prosthetic heart valve (principal); I36.0 Nonrheumatic tricuspid (valve) stenosis
CPT/HCPCS: 93306

== ENCOUNTER → 2024-05-14 10:46 | Outpatient (BNVA) | payer MEDICARE, BC, SELFPAY | PROVIDERS: PCP Physician Assistant Medical; Visit Provider Internal Medicine Cardiovascular Disease | DX: Z95.2 Presence of prosthetic heart valve (principal); I35.0 Nonrheumatic aortic (valve) stenosis | CPT/HCPCS: 99213 ==

== ENCOUNTER → 2024-11-12 10:47 | Outpatient (BNVA) | payer MEDICARE, BC, SELFPAY | PROVIDERS: PCP Physician Assistant Medical; Referring Provider Physician Assistant Medical; Visit Provider Internal Medicine Cardiovascular Disease | DX: Z95.2 Presence of prosthetic heart valve (principal) | CPT/HCPCS: 99213 ==

== ENCOUNTER 2025-01-14 02:07 | Outpatient (CLI) | payer MEDICARE, BC, SELFPAY ==
--- NOTE | 2025-01-14 07:00 | DI.US_ITS ---
APPROVED REPORT EXAM: Comprehensive 2D, Doppler, and color-flow Echocardiogram Patient Location: Out-Patient Chief Controller Tower: Gisella Reeves RDCS (AE) Indications: Check TAVR Other Information Study Quality: Adequate Conclusion Mild concentric left ventricular hypertrophy. Ejection fraction is 60 to 65%. Wall motion is normal Normal right ventricular size and function Both atria are normal in size Patient is status post transcatheter aortic valve replacement. Mean gradient is 12 mmHg. There is trace paravalvular regurgitation Thickened mitral leaflets. Mild mitral regurgitation Mild to moderate tricuspid regurgitation. Estimated right ventricular systolic pressure is 37 mmHg Wall motion Left Ventricle The left ventricle is normal size. The left ventricular systolic function is normal. The left ventricular ejection fraction is within the normal range. Mild concentric left ventricular hypertrophy. There is normal LV segmental wall motion. There is no ventricular septal defect visualized. LVEF is 60-65%. Right Ventricle The right ventricle is normal size. The right ventricular systolic function is normal. Atria The left atrium size is normal. The right atrium size is normal. The interatrial septum is intact with no evidence for an atrial septal defect. Aortic Valve Mean gradient is 12 mmHg Paravalvular aortic leak. TAVR aortic valve is present Mitral Valve Thickened mitral leaflets No evidence of mitral valve stenosis. Mild mitral regurgitation. Tricuspid Valve The tricuspid valve is normal in structure. There is no tricuspid valve stenosis. Mild to moderate tricuspid regurgitation. The RVSP is 36.6 mmHg. Pulmonic Valve The pulmonary valve is normal in structure. There is no pulmonic valvular stenosis. Trace pulmonic regurgitation. Great Vessels The aortic root is normal in size. The ascending aorta is normal in size. Aortic arch is not well visualized. IVC is normal in size and collapses >50% with inspiration. Pericardium There is no pericardial effusion. 2D Dimensions IVSD d PLAX 1.10 cm F: 0.6-1.0 Ao Root d 2.11 cm F: 2.7 - 3.3 LVPW d PLAX 1.10 cm F: 0.6 - 1.0 Ao Asc Diam d 3.08 cm F: 2.3 - 3.1 LVID d PLAX 4.10 cm F: 3.8 - 5.2 LVDs 2.64 cm F: 2.2 - 3.5 LV EF Teichholz 65.2 % FS 35.30 % LV EDV (Teich) 73.1 mL LV ESV (Teich) 25.5 mL M-Mode TAPSE 2.53 cm (M/F) >1.7 Auto EF LV EDV A4C 87.4 mL LV EDV A2C 86.7 mL LV EDV BP 88.7 mL LV ESV A4C 31.0 mL LV ESV A2C 30.3 mL LV ESV BP 30.3 mL LVEF(%) A4C 64.5 % LVEF(%) A2C 65.1 % LVEF(%) BP 65.8 % LV SV A4C 56.4 ml LV SV A2C 56.4 ml LV SV BP 58.4 ml LV CO A4C 4.1 L/min LV CO A2C 4.2 L/min LV CO BP 4.2 L/min HR A4C 73.14 BPM HR A2C 75.00 BPM LV EDV Index (BP) LA Volume LA Length A4C 4.9 cm LA Length A2C 5.1 cm LA Area A4C s 17.54 cm2 LA Area A2C s 20.36 cm2 LA Vol A4C A-L 53.29 mL LA Vol A2C A-L 68.79 mL LA Vol Biplane A-L 61.9 mL LA Vol/BSA A4C A-L LA Vol/BSA A2C A-L LA Vol/BSA BP A-L 34.8 mL/m2 LA Vol A4C MOD 51.0 mL LA Vol A2C MOD 63.4 mL LA Vol BP MOD 57.4 mL RA Volume RA Area A4C 14.4 cm2 RA ESV A4C (A-L) 33.7mL RA Vol/BSA A4C A-L RA Length A4C 5.3 cm RA ESV A4C (MOD) 32.9mL LV Diastology MV E' medial 0.077 (>0.07 m/s) MV E Vmax 1.49 (0.4-1.3 m/s) MV E/E' MED 19.36 (<14) MV A Vmax 1.35 (0.4-1.3 m/s) MV E' lateral 0.071 (>0.1 m/s) E/A Ratio 1.1 MV E/E' LAT 20.82 (<14) MV E' Average 0.074 m/s MV E/E'(average) 20.07 Aortic Valve AoV Vmax 2.30 m/s LVOT Vmax 1.27 m/s AoV Peak Grad 21.1 mmHg LVOT Peak Grad 6.4 mmHg AoV Area (Vmax) 1.69 cm2 LVOT VTI 0.292 m AoV VTI 0.534 m LVOT Mean Grad 2.8 mmHg AoV Mean Aron. 1.61 m/s LVOT SV 89.41 mL AoV Mean Grad 11.8 mmHg LVOT Diam s 1.95 cm AoV Area (VTI) 1.68 cm2 AV Regurg Peak Gr. 21.13 mmHg Velocity Ratio 0.55 Mitral Valve MV DT 244 (160-240 msec) MV Vmax TIPS 1.48 m/s MV Mean Grad 3.7 (<2mmHg) MV VTI 0.457 m Pulmonary Valve PV Vmax 0.87 (0.5-1.5 m/s) RVOT Vmax 0.81 m/s PV Peak Grad 3.0 mmHg RVOT Peak Gr. 2.6 mmHg PV Mean Aron 0.66 m/s RVOT VTI 0.183 m PV Mean Grad 2.0 mmHg RVOT Mean Gr. 1.6 mmHg Tricuspid Valve RA Pressure 3.00 mmHg TR Vmax 2.90 m/s TV S' 0.16 m/s TR Peak Grad 33.6 mmHg RVSP (TR) 36.6 mmHg
== END 2025-01-14 02:27 ==
PROVIDERS: PCP Physician Assistant Medical; Visit Provider Internal Medicine Cardiovascular Disease
DX: I51.7 Cardiomegaly (principal); Z95.2 Presence of prosthetic heart valve
CPT/HCPCS: 93306

== ENCOUNTER 2025-01-28 10:56 | Outpatient (CLI) | payer MEDICARE, BC, SELFPAY ==
--- NOTE | 2025-01-28 11:00 | RT.EKG_ITS ---
APPROVED REPORT Exam: Resting ECG Reason for Exam: S/P TAVR Patient Location: O HR:70 bpm ECG Measurements Heart Rate 70 AXIS MN 160 P 70 QRSd 75 QRS 34 QT 385 T 25 QTc 416 Conclusion Sinus rhythm...normal P axis, V-rate 50- 99 Left atrial enlargement...P, P'>60mS, <-0.15mV V1 Otherwise normal ECG
== END 2025-01-28 10:57 | disposition home or self-care (01) ==
PROVIDERS: PCP Physician Assistant Medical; Visit Provider Physician Assistant
DX: Z95.2 Presence of prosthetic heart valve (principal)
CPT/HCPCS: 36415; 80053; 85025; 93005; 93010

== ENCOUNTER 2025-01-28 11:49 | Outpatient (CLI) | payer MEDICARE, BC, SELFPAY ==
[2025-01-28 12:16] LABS: Abs Immature Grans 0.01 10^3/uL (0.0-0.06); HCT 37.2 % (36.0-46.0); HGB 12.0 g/dL (11.2-15.7); Immature Grans % 0.2 %; MCH 29.6 pg (27.0-33.0); MCHC 32.3 % (32.0-36.0); MCV 92 fL (80-95); MPV 9.9 fL (8.0-11.0); Platelet Count 204 10^3/uL (130-400); RBC 4.06 10^6/uL (3.93-5.22); RDW 12.6 % (11.7-14.6); RDW-SD 42.3 fL; WBC 5.06 10^3/uL (4.4-10.8)
[2025-01-28 12:53] LABS: ALT 19 U/L (14-59); AST 16 U/L (15-37); Albumin 3.6 g/dL (3.4-5.0); Alkaline Phosphatase 91 U/L (46-116); Anion Gap 10.0 mmol/L (3-11); BUN 36 mg/dL (7-18); Bilirubin, Total 0.5 mg/dL (0.2-1.0); CO2 26.0 mmol/L (21.0-32.0); Calcium 8.8 mg/dL (8.5-10.1); Chloride 107 mmol/L (98-107); Estimated GFR 56.95 (mL/min/1.73m2); Glucose 88 mg/dL (74-106); Potassium 4.2 mmol/L (3.5-5.1); Sodium 143 mmol/L (136-145); Total Protein 7.1 g/dL (6.4-8.2)
== END 2025-01-28 11:50 | disposition home or self-care (01) ==
LOC: LBO 11:49
PROVIDERS: PCP Physician Assistant Medical; Visit Provider Physician Assistant
DX: Z95.2 Presence of prosthetic heart valve (principal)
CPT/HCPCS: 36415; 80053; 85025